=== PATIENT | male | born 1955 | race Caucasian/White ===

== ENCOUNTER 2016-11-11 11:40 | Inpatient (IN) ==
--- NOTE | 2016-11-11 12:07 | Emergency Department Note ---
Disposition Clinical Impression: Enthesopathy of elbow region, Cervical disc disease, Cervical radiculopathy, Hypertension, Hyperlipidemia, Chest pain, CAD (coronary artery disease), BEATTY ( dyspnea on exertion), Obesity Disposition: Admitted As Inpatient General Adult HPI - General Stated complaint: L arm pain and numbness x 2 months Time Seen by Provider: 11/11/16 12:06 Source: patient, family - History of Present Illness HPI Narrative: 61-year-old male reports to the emergency department complaining of left arm numbness and pain. The patient has had symptoms for the last few months, he visited his primary care physician who prescribed him a nonsteroidal as well as tramadol. This has not been helpful. The patient also saw a chiropractor. The patient describes pain from the left trapezius area down through the left arm with numbness. He has no previous history of neck problems, cervical disc disease, malignancy, or neck surgery. There has been no trauma. No neck stiffness rash or fever. No kenny neck pain. The patient denies any coldness or blueness of the extremities. No numbness or weakness in the arms or legs otherwise. No headache. No trouble walking talking hearing seeing or speaking. The patient has no personal history of aneurysm, he does not take blood thinners. There is no history of fever cough or shortness of breath unless he exerts himself. The patient does describe some exertional chest discomfort as well as shortness of breath. His reports he is generally healthy and active and and this symptomatology is new and apparently persistent and getting worse. There is no history of rash. No history of abdominal pain vomiting diarrhea or back pain. No urinary symptoms reported or noted. The patient has no personal history of vascular disease, previous CVA, coronary disease diabetes , but he does have a history of hypertension, hypercholesterolemia and a strong family history of coronary artery disease. Patient reports he has not usually dyspnea or have chest pain on and exertion but has developed this recently. No history of Dylan's syndrome. No coughing up blood, passing out, leg swelling or pain, or personal history of DVT PE or cancer. No spinal pain. Onset (ago): week(s) - Related Data Home Medications Medication Instructions Recorded Confirmed Amlodipine [Norvasc] 5 mg PO DAILY 11/11/16 11/11/16 Aspirin 325 mg PO DAILY 11/11/16 11/11/16 Atenolol [Atenolol] 100 mg PO DAILY 11/11/16 11/11/16 Etodolac [Etodolac] 500 mg PO BID 11/11/16 11/11/16 Ferrous Sulfate 325 mg PO DAILY 11/11/16 11/11/16 Losartan/Hydrochlorothiazide 1 tab PO DAILY 11/11/16 11/11/16 [Losartan-Hctz 100-25 mg Tab] Multivitamin [Multi-Day Vitamins] 1 each PO DAILY 11/11/16 11/11/16 Tramadol HCl [Tramadol HCl] 50 mg PO Q6H PRN 11/11/16 11/11/16 Allergies Allergy/AdvReac Type Severity Reaction Status Date / Time No Known Allergies Allergy Verified 11/11/16 12:17 All systems ED: reviewed and negative except as stated. Past Medical History - Past Medical History Medical history: Reports: hyperlipidemia Physical Exam - General Limitations: no limitations General appearance: alert, in no apparent distress - Head Head exam: atraumatic, normocephalic, normal inspection - Eye Eye exam: Present: normal appearance, PERRL, EOMI. Absent: scleral icterus, conjunctival injection - ENT ENT exam: normal exam, normal oropharynx, mucous membranes moist, TM's normal bilaterally, normal external ear exam - Neck Neck exam: Present: normal inspection, full ROM, trachea midline. Absent: tenderness, meningismus - Chest Chest inspection: Present: symmetric chest wall rise. Absent: tenderness - Respiratory Respiratory exam: Present: normal lung sounds bilaterally, respiratory distress - Cardiovascular Cardiovascular exam: Present: regular rate, normal rhythm, normal heart sounds - Abdominal Exam Abdominal exam: Present: soft, Non-Tender. Absent: tenderness, distention, guarding, rebound, rigidity, pulsatile mass - Extremities Exam Extremities exam: Present: normal inspection, full ROM, normal capillary refill. Absent: tenderness, pedal edema, joint swelling, calf tenderness - Expanded Upper Extremity Exam Shoulder exam: Present: normal inspection, full ROM. Absent: tenderness, swelling, abrasion, laceration, ecchymosis, deformity, crepitus, dislocation, erythema Arm exam: Present: normal inspection, full ROM. Absent: tenderness, swelling Elbow exam: Present: normal inspection, full ROM. Absent: tenderness, swelling Forearm/Wrist exam: Present: normal inspection, full ROM. Absent: tenderness Hand exam: Present: normal inspection, full ROM. Absent: tenderness, swelling - Expanded Lower Extremity Exam Hip/Pelvis exam: Present: full ROM. Absent: tenderness Upper leg exam: Present: full ROM. Absent: tenderness Knee exam: Present: full ROM. Absent: tenderness Lower leg exam: Present: full ROM. Absent: tenderness, Homans' sign Ankle exam: Present: full ROM. Absent: tenderness Neurovascular/Tendon exam: Present: normal capillary refill. Absent: pulse deficit, motor deficit, sensory deficit, tendon deficit - Back Exam Back exam: Present: normal inspection, full ROM. Absent: tenderness, CVA tenderness (R), CVA tenderness (L), vertebral tenderness - Neurological Exam Neurological exam: Present: alert, oriented X3, CN II-XII intact. Absent: motor sensory deficit - Psychiatric Psychiatric exam: Present: normal affect - Skin Skin exam: Present: warm, dry, intact, normal color. Absent: rash, cyanosis, diaphoresis, erythema, pallor, mottled Course Vital Signs Temperature 97.3 F L 11/11/16 12:06 Pulse Rate 55 11/11/16 12:06 Respiratory Rate 17 11/11/16 12:06 Blood Pressure 109/89 11/11/16 12:06 O2 Sat by Pulse Oximetry 98 11/11/16 12:06 Temperature 97.3 F L 11/11/16 12:06 Pulse Rate 46 11/11/16 16:14 Respiratory Rate 16 11/11/16 16:14 Blood Pressure 162/82 11/11/16 16:14 O2 Sat by Pulse Oximetry 94 L 11/11/16 16:14 Oxygen Delivery Oxygen Delivery Room Air Medical Decision Making - [facility] Narrative Medical decision making narrative: The patient is 61 years old, has a history of hypertension and hyperlipidemia as well as a strong family history of coronary artery disease. The patient's CT scans reveal significant C6 region cervical pathology which are likely responsible for his left upper extremity radiculopathy. I reviewed the case with the patient and his . They are concerned about the patient's progressive chest pain and shortness of breath. He gets dyspneic and has chest pain on exertion. He has never had a cardiac catheterization. His CT studies reveal some coronary artery disease. They do not feel comfortable taking the patient home. The patient was given pain control measures in the ED as well as aspirin. Based on his heart score, and apparent new onset dyspnea on exertion with chest pain and progressive symptomatology, I thought it would be appropriate to consult the hospitalist for admission. The patient is currently stable. - Lab Data Lab results reviewed: Yes I reviewed the patient's lab results. Result diagrams: 11/11/16 12:30 11/11/16 12:30 Lab Results 11/11/16 11/11/16 11/11/16 Range/Units 12:30 12:30 12:30 WBC 8.5 (4.3-11.1) K/mcL RBC 5.80 H (4.19-5.50) M/mcL Hgb 17.2 H (12.9-16.9) g/dL Hct 51.0 H (37.5-50.1) % MCV 87.9 (83.0-100.0) fL MCH 29.7 (28.0-33.3) pg MCHC 33.7 (31.6-35.5) g/dL RDW 11.9 (11.5-14.5) % Plt Count 230 (140-400) K/mcL MPV 9.0 L (9.4-12.4) fL Immature Gran % 0.4 (0-4) % Seg Neutrophils % 74.5 % Lymphocytes % 14.9 % Monocytes % 4.5 % Eosinophils % 4.9 % Basophils % 0.8 % Neutrophils # 6.4 (1.6-8.9) K/mcL Lymphocytes # 1.3 (0.6-4.6) K/mcL Monocytes # 0.4 (0.0-1.3) K/mcL Eosinophils # 0.4 (0.0-0.6) K/mcL Basophils # 0.1 (0.0-0.2) K/mcL PT 12.4 H (9.4-12.1) Seconds INR 1.1 APTT 30.5 (26.0-36.0) Seconds Sodium 140 (136-145) mEq/L Potassium 3.7 (3.5-4.5) mEq/L Chloride 104 (98-109) mEq/L Carbon Dioxide 30 H (19-29) mEq/L BUN 14 (8-26) mg/dL Creatinine 0.82 (0.72-1.25) mg/dL Est GFR ( Amer) > 60 (> 60) Est GFR (Non-Af Amer) > 60 (> 60) BUN/Creatinine Ratio 17 (6-26) Glucose 125 H (70-99) mg/dL Calculated Osmolality 292 (280-300) Calcium 9.8 (8.6-10.8) mg/dL Total Bilirubin 0.4 (0.2-1.2) mg/dL Direct Bilirubin 0.2 (0.0-0.5) mg/dL Indirect Bilirubin 0.2 (0.0-1.2) mg/dL AST 17 (5-34) Units/L ALT 20 (0-55) Units/L Alkaline Phosphatase 64 (38-126) Units/L Creatine Kinase 43 (30-200) Units/L Troponin I (0-0.03) ng/mL C-Reactive Protein 5 H (Less than 5) mg/L Serum Total Protein 7.7 (6.0-8.3) g/dL Albumin 3.5 (3.5-5.0) g/dL Globulin 4.2 H (2.4-3.5) g/dL Albumin/Globulin Ratio 0.8 L (1.1-2.2) 11/11/ Range/Units 12:30 WBC (4.3-11.1) K/mcL RBC (4.19-5.50) M/mcL Hgb (12.9-16.9) g/dL Hct (37.5-50.1) % MCV (83.0-100.0) fL MCH (28.0-33.3) pg MCHC (31.6-35.5) g/dL RDW (11.5-14.5) % Plt Count (140-400) K/mcL MPV (9.4-12.4) fL Immature Gran % (0-4) % Seg Neutrophils % % Lymphocytes % % Monocytes % % Eosinophils % % Basophils % % Neutrophils # (1.6-8.9) K/mcL Lymphocytes # (0.6-4.6) K/mcL Monocytes # (0.0-1.3) K/mcL Eosinophils # (0.0-0.6) K/mcL Basophils # (0.0-0.2) K/mcL PT (9.4-12.1) Seconds INR APTT (26.0-36.0) Seconds Sodium (136-145) mEq/L Potassium (3.5-4.5) mEq/L Chloride (98-109) mEq/L Carbon Dioxide (19-29) mEq/L BUN (8-26) mg/dL Creatinine (0.72-1.25) mg/dL Est GFR ( Amer) (> 60) Est GFR (Non-Af Amer) (> 60) BUN/Creatinine Ratio (6-26) Glucose (70-99) mg/dL Calculated Osmolality (280-300) Calcium (8.6-10.8) mg/dL Total Bilirubin (0.2-1.2) mg/dL Direct Bilirubin (0.0-0.5) mg/dL Indirect Bilirubin (0.0-1.2) mg/dL AST (5-34) Units/L ALT (0-55) Units/L Alkaline Phosphatase (38-126) Units/L Creatine Kinase (30-200) Units/L Troponin I 0.00 (0-0.03) ng/mL C-Reactive Protein (Less than 5) mg/L Serum Total Protein (6.0-8.3) g/dL Albumin (3.5-5.0) g/dL Globulin (2.4-3.5) g/dL Albumin/Globulin Ratio (1.1-2.2) - Radiology Data Radiology results reviewed: Yes I reviewed the patient's radiology results.
[2016-11-11 12:58] LABS: Basophils # 0.1 K/mcL (0.0-0.2); Basophils % 0.8 %; Eosinophils # 0.4 K/mcL (0.0-0.6); Eosinophils % 4.9 %; Hemoglobin 17.2 g/dL (12.9-16.9); Immature Granulocytes % 0.4 % (0-4); Lymphocytes # 1.3 K/mcL (0.6-4.6); Lymphocytes % 14.9 %; Mean Corpuscular HGB Conc 33.7 g/dL (31.6-35.5); Mean Corpuscular Hemoglobin 29.7 pg (28.0-33.3); Mean Corpuscular Volume 87.9 fL (83.0-100.0); Monocytes # 0.4 K/mcL (0.0-1.3); Monocytes % 4.5 %; Neutrophils # 6.4 K/mcL (1.6-8.9); Platelet Count 230 K/mcL (140-400); Red Cell Distribution Width 11.9 % (11.5-14.5); Segmented Neutrophils % 74.5 %
[2016-11-11 13:05] LABS: INR 1.1; Prothrombin Time 12.4 Seconds (9.4-12.1)
[2016-11-11 13:07] LABS: Activated Partial Thrombo Time 30.5 Seconds (26.0-36.0)
[2016-11-11 13:12] LABS: Alanine Aminotransferase 20 Units/L (0-55); Albumin 3.5 g/dL (3.5-5.0); Albumin/Globulin Ratio 0.8 (1.1-2.2); Alkaline Phosphatase 64 Units/L (38-126); Aspartate Amino Transferase 17 Units/L (5-34); BUN/Creatinine Ratio 17 (6-26); Bilirubin,Direct 0.2 mg/dL (0.0-0.5); Bilirubin,Indirect 0.2 mg/dL (0.0-1.2); Bilirubin,Total 0.4 mg/dL (0.2-1.2); Blood Urea Nitrogen 14 mg/dL (8-26); Calcium 9.8 mg/dL (8.6-10.8); Carbon Dioxide 30 mEq/L (19-29); Chloride 104 mEq/L (98-109); Creatine Kinase 43 Units/L (30-200); Globulin 4.2 g/dL (2.4-3.5); Glucose 125 mg/dL (70-99); Osmolality,Calculated 292 (280-300); Potassium 3.7 mEq/L (3.5-4.5); Sodium 140 mEq/L (136-145); Total Protein 7.7 g/dL (6.0-8.3); eGFR For African Americans > 60 (> 60); eGFR For Non-African Americans > 60 (> 60)
[2016-11-11 14:02] LABS: C-Reactive Protein 5 mg/L (Less than 5)
[2016-11-11] MEDS ORDERED: Ondansetron 4 MG/2 ML VIAL IVP ONE ×2 (14:21→15:52)
[2016-11-11] MEDS ORDERED: *HR* Morphine 2 MG/ML SYRINGE IVP ONE (14:21)
[2016-11-11] MEDS ORDERED: Aspirin 325 MG TABLET PO ONE (15:51)
[2016-11-11] MEDS ORDERED: *HR* HYDROmorphone (PF) 1 MG/ML SYRINGE IVP ONE (15:52)
[2016-11-11] MEDS ORDERED: methylPREDNISolone 125 MG/2 ML VIAL IVP ONE (16:32)
[2016-11-11] MEDS ORDERED: Famotidine 20 MG/2 ML VIAL IVP ONE (16:48)
[2016-11-11] MEDS ORDERED: Naloxone 0.4 MG/ML INJ IVP PRN (16:48)
[2016-11-11] MEDS ORDERED: Ondansetron 4 MG/2 ML VIAL IVP PRN (16:48)
--- NOTE | 2016-11-11 17:33 | Internal Med History&Physical ---
Date of Encounter: 11/11/16 Time of Encounter: 17:00 Assessment and Plan (1) Chest pain Current visit: Yes Status: Acute Left sided chest pain Asso. with SOB, palpitations and lightheadedness. Not reproducible. CTAB. EKG with 1st degree AV block and sinus bradycardia Trop -ve CTA does not reveal PE CT neck reveals radiculopathy Place under observation Strong family history of CAD Had stress test last year in 07/2015 that was negative and ECHO that was normal. Cardiology consult. Cycle troponins. NPO past midnight in case cardiology recommends stress testing. Telemetry. Qualifiers: Chest pain type: precordial chest pain Qualified Code(s): R07.2 - Precordial pain (2) Hypertension Current visit: Yes Status: Chronic Continue home meds Monitor BP and adjust accordingly Qualifiers: Hypertension type: essential hypertension Qualified Code(s): I10 - Essential (primary) hypertension (3) Cervical stenosis of spinal canal Current visit: Yes Status: Chronic Needs out patient MRI on a non-emergent basis for further evaluation May benefit from neurology follow up and may require neurosurgical consultation (4) WENDY (obstructive sleep apnea) Current visit: Yes Status: Suspected History of snoring and jerking movements in sleep punching his Will need out patient sleep study. Will check ABG to evaluate for hypercapnia from COPD due to elevated bicarbonate level Check ambulatory oxygen levels to evaluate if he needs oxygen with activity (5) Obesity (BMI 30-39.9) Current visit: No Status: Chronic (6) COPD (chronic obstructive pulmonary disease) Current visit: Yes Status: Suspected Pt. has high hemoglobin and appears flushed Has about 50 pack year smoking history Will start duonebs PRN and assess response Qualifiers: COPD type: unspecified COPD Qualified Code(s): J44.9 - Chronic obstructive pulmonary disease, unspecified Internal Medicine - H&P: HPI Chief complaint: Chest pain Admitted From: Emergency Dept Plans for Post Hospital Care: Home History of present illness: Mr. Saavedra is a 61 year old male with a history of hypertension who presents to the emergency room due to chest pain. Patient states that he has been having chest pain and left arm pain over the past 2 months. This has been gradually getting worse. The pain is present constantly without any activating or relieving factors. It is the pain as 10/10 with radiation to his left arm all the way to his second and third fingers. He reports that his second and third fingers are numb. He denies any associated nausea, vomiting or diaphoresis. He reports associated lightheadedness and palpitations that are aggravated with activity. He reports shortness of breath. He states that he gets short of breath with moderate to severe activity. His palpitations have been going on for the past 2 years. He denies any orthopnea or paroxysmal nocturnal dyspnea. He denies any cough or wheezing. He reports that he has had diarrhea over the past 5-6 years. He reports 8-10 bowel movements per day which are loose and watery. He reports occasional blood in the stools that happens about once a month. Over the past one week, he has had black colored stools that is sticky. About 3 weeks ago, he was started on etodolac by his primary care physician due to pain in his left arm which she has been taking twice a day. He also reports reduced appetite and reduced weight although he is not able to tell me how much weight he has lost. He denies any fever or chills. He does report that he has had a cold about 2 weeks ago which is currently resolved. Past Med Surg Social Fam HX - Past Medical History Attestation: Yes The following information was validated with the patient. Source: patient Medical history: GERD, hyperlipidemia, hypertension Psychiatric history: no psych history - Past Surgical History Surgical History: herniorrhaphy (Umbilical hernia), other (Stomach raised for GERD; Hemorrhoids) - Social History Smoking Status: Former smoker Packs per day: 2-3 PPD x 20 yrs Alcohol use: heavy (5-6 beers daily) Drug use: none Current living situation: Home, With Family Activity Level: Independent ambulation - Family History Brother Hx Family Cardiac Disorders: Yes (CAD @ 51) Sister Hx Family Cardiac Disorders: Yes (CAD @ 60) Hx Family Neurologic Disorders: Yes (ALS) Mother Hx Family Cardiac Disorders: Yes (CAD) Internal Medicine - H&P: Meds Amlodipine [Norvasc] 5 mg PO DAILY 11/11/16 [History] Aspirin 325 mg PO DAILY 11/11/16 [History] Atenolol [Atenolol] 100 mg PO DAILY 11/11/16 [History] Etodolac [Etodolac] 500 mg PO BID 11/11/16 [History] Ferrous Sulfate 325 mg PO DAILY 11/11/16 [History] Losartan/Hydrochlorothiazide [Losartan-Hctz 100-25 mg Tab] 1 tab PO DAILY [History] Multivitamin [Multi-Day Vitamins] 1 each PO DAILY 11/11/16 [History] Tramadol HCl [Tramadol HCl] 50 mg PO Q6H PRN 11/11/16 [History] Allergies No Known Allergies Allergy (Verified 11/11/16 12:17) All Systems PM: A 10-system review of systems was performed and is negative for pertinent findings except as documented above in the HPI. Review of systems: 10 systems have been reviewed and are negative except as mentioned in the history of present illness - Constitutional Vitals: Temp Pulse Resp BP Pulse Ox 97.3 F L 46 16 134/99 96 11/11/16 12:06 11/11/16 17:10 11/11/16 17:10 11/11/16 17:10 11/11/16 17:10 Exam: Gen.: Lying in bed. No acute distress. Eyes: Pupils equal, round and reactive to light. Extraocular muscles intact. ENT: Moist mucous membranes. No oropharyngeal erythema or discharge. MP III. Tonsils seen. Chest: Clear to auscultation bilaterally. No adventitious sounds present. CVS: First and second heart sounds present. No murmurs, rubs or gallops. Bradycardia present. Abdomen: Soft, nontender, obese. Bowel sounds present. Skin: No decubitus ulcers appreciated. JET HANDLER: No focal neuro deficits present. Psychiatric: Alert, awake and oriented to time, place and person. Lymphatic system: No lymphadenopathy appreciated Internal Med - H&P Results - Labs CBC & Chem 7: 11/11/16 12:30 11/11/16 12:30 - EKG Data -: EKG Interpreted by Myself EKG shows normal: sinus rhythm, QRS complexes (1st degree AV block; WI 211), ST- T waves (No ST-T changes) Rate: bradycardia - Diagnostic Studies CT scan - chest Status: image reviewed by me (No PE seen; No infiltrates; Enlarged Heart) Other Images Additional comments: CT cervical spine reveals moderate to severe spinal canal stenosis
[2016-11-11] MEDS ORDERED: Ipratropium/Albuterol Neb 3 ML IH PRN (17:49)
[2016-11-11 20:26] LABS: ABG Base Excess 4.6 mEq/L (-2.0 to 3.0); ABG HCO3 31.8 mEQ/L (21-27); ABG Oxygen Saturation 91 % (95-98); ABG PCO2 55 mmHg (35-45); ABG PH 7.37 pH Units (7.32-7.45); ABG PO2 64 mmHg (85-104); ABG TCO2 33.5 mEq/L (20-26); Blood Gas FiO2 21 %
[2016-11-12] MEDS: traMADol 50 MG TABLET PO PRN ×3 (00:14→16:57)
[2016-11-12] MEDS ORDERED: Melatonin 3 MG TABLET PO ONE (00:15)
[2016-11-12] MEDS: Acetaminophen 325 MG TABLET PO PRN (03:51)
[2016-11-12 07:19] LABS: Basophils % 0.1 %; Hematocrit 48.8 % (37.5-50.1); Hemoglobin 16.8 g/dL (12.9-16.9); Immature Granulocytes % 0.3 % (0-4); Lymphocytes # 1.1 K/mcL (0.6-4.6); Lymphocytes % 7.8 %; Mean Corpuscular HGB Conc 34.4 g/dL (31.6-35.5); Mean Corpuscular Hemoglobin 30.3 pg (28.0-33.3); Mean Corpuscular Volume 88.1 fL (83.0-100.0); Mean Platelet Volume 9.2 fL (9.4-12.4); Monocytes # 0.1 K/mcL (0.0-1.3); Monocytes % 0.7 %; Platelet Count 223 K/mcL (140-400); Red Blood Count 5.54 M/mcL (4.19-5.50); Red Cell Distribution Width 11.8 % (11.5-14.5); Segmented Neutrophils % 91.1 %
[2016-11-12 07:37] LABS: BUN/Creatinine Ratio 20 (6-26); Blood Urea Nitrogen 15 mg/dL (8-26); Calcium 9.6 mg/dL (8.6-10.8); Carbon Dioxide 26 mEq/L (19-29); Chloride 101 mEq/L (98-109); Glucose 157 mg/dL (70-99); Osmolality,Calculated 286 (280-300); Sodium 136 mEq/L (136-145); eGFR For African Americans > 60 (> 60); eGFR For Non-African Americans > 60 (> 60)
[2016-11-12 07:47] LABS: Hemoglobin A1C 5.5 %
--- NOTE | 2016-11-12 09:31 | Cardiology Consult Note ---
Date of Encounter: 11/12/16 Time of Encounter: 09:26 Assessment and Plan (1) Chest pain Current Visit: Yes Status: Acute Very atypical for angina, negative enzymes and EKG. Previous stress test negative. No further inpt. work up needed. Can follow up as outpt. Qualifiers: Chest pain type: precordial chest pain Qualified Code(s): R07.2 - Precordial pain Discussion w patient/family: The assessment and plan as outlined above was discussed with the patient and/or family members who expressed understanding and agreement. All questions were answered. Thank you for involving us in the care of your patient. Please call with any questions. History of Present Illness Consult date: 11/12/16 Requesting physician: Rick James Consult reason: Chest pain History of present illness: Mr. Saavedra is a 61 year old male who presented to the hospital due to shoulder pain. This has been constant for several weeks and is consistent with musculoskeletal injury. During the work up he also described left sided chest pain. This has no aggravating or relieving factors, is not associated with physical activity and lasts just 2-3 minutes at a time. He has had a previous stress test (2014) which was normal. Past Med Surg Social Fam HX - Past Medical History Medical history: GERD, hyperlipidemia, hypertension Psychiatric history: no psych history - Past Surgical History Surgical History: herniorrhaphy, other - Social History Smoking Status: Former smoker Packs per day: 2-3 PPD x 20 yrs Alcohol use: heavy Drug use: none - Family History Brother Living Status: Age at : 50 Cause of : MS Hx Family Cardiac Disorders: Yes (CAD @ 51) Sister Living Status: Age at : 60 Cause of : MS Hx Family Cardiac Disorders: Yes (CAD @ 60) Hx Family Neurologic Disorders: Yes (ALS) Mother Living Status: Still Living Hx Family Cardiac Disorders: Yes (CAD) Medications and Allergies Amlodipine [Norvasc] 5 mg PO DAILY 11/11/16 [History] Aspirin 325 mg PO DAILY 11/11/16 [History] Atenolol [Atenolol] 100 mg PO DAILY 11/11/16 [History] Etodolac [Etodolac] 500 mg PO BID 11/11/16 [History] Ferrous Sulfate 325 mg PO DAILY 11/11/16 [History] Losartan/Hydrochlorothiazide [Losartan-Hctz 100-25 mg Tab] 1 tab PO DAILY [History] Multivitamin [Multi-Day Vitamins] 1 each PO DAILY 11/11/16 [History] Tramadol HCl [Tramadol HCl] 50 mg PO Q6H PRN 11/11/16 [History] Allergies No Known Allergies Allergy (Verified 11/11/16 12:17) All Systems Review: A 10-system review of systems was performed and is negative for pertinent findings except as documented above in the HPI. Physical Examination Vital Signs, Last 4 Hours Temp Pulse Resp BP Pulse Ox 11/12/16 07:30 97 11/12/16 06:56 97.7 F 93 16 141/95 96 General: Conversant, No Apparent Distress HEENT: Atraumatic, Normocephaly, Mucus Membranes Moist Neck: No JVD, Normal carotid pulses Cardiac: Reg Rate and Rhythm, Normal S1 and S2, No Murmur Lungs: Normal Breath Sounds, No Wheeze, Rales, Rhonchi Neuro: Alert and responsive, No focal deficits noted Abdomen: Soft, Non-Tender Skin: No rashes noted on visualized skin Musculoskeletal: No Chest Wall Tenderness Extremities: No Clubbing, No Cyanosis, No Edema, Normal Pulses Results 11/12/16 06:14 11/12/16 06:14 Lab Results 11/11/16 11/11/16 11/12/16 18:22 20:54 06:14 WBC 14.3 H D Hgb 16.8 Hct 48.8 Plt Count 223 Sodium Potassium Chloride Carbon Dioxide BUN Creatinine Glucose Calcium Troponin I 0.01 0.00 11/12/16 06:14 WBC Hgb Hct Plt Count Sodium 136 Potassium 4.0 Chloride 101 Carbon Dioxide 26 BUN 15 Creatinine 0.76 Glucose 157 H Calcium 9.6 Troponin I - EKG Interpretation EKG results cardiology: normal ECG Consult Discharge Plan - Plan Referrals: Satish Nicole DO [Primary Care Provider] -
[2016-11-12] MEDS: Tiotropium 18 MCG inhalation IH SCH ×2 (11:04→14:03)
--- NOTE | 2016-11-12 11:08 | ECHO - Doppler Report ---
Echocardiogram Name: Sedrick Saavedra Date of Study: 11/12/2016 Date: 1955 Ht: 70.0 in Medical Record#: [id number] Age: 61 Wt: 236.0 lb Gender: Male BSA: 2.24 Order #: [id number] Location: [facility] Room #: [id number] Reading Physician: Maciej Jimenez MD, [facility] Boat Engine Mechanic: Carlito Castaneda Ordering Physician: Rick James MD Primary Physician: Satish Nicole DO Indications: Chest pain, Shortness of breath Impressions: Normal left ventricular size and systolic function, LVEF 65% Mild concentric left ventricular hypertrophy. Mild left ventricular diastolic dysfunction. Normal right ventricular size and function. Mildly dilated left atrium. No significant valvular dysfunction. No evidence of pulmonary hypertension. Left Ventricular Wall Motion: Rest Echo Findings All wall segments showed normal motion. Findings: Study Quality * Technically adequate exam. ECG Findings * Normal sinus rhythm. Left Ventricle * Normal left ventricular size and systolic function, LVEF 65% * Mild concentric left ventricular hypertrophy. * Mild left ventricular diastolic dysfunction. Right Ventricle * Normal right ventricular size and function. Left Atrium * Mildly dilated left atrium. Right Atrium * Normal right atrial size. Aorta * Normally sized aortic root. Pericardium * There is no pericardial effusion present. IVC * Normal IVC dimensions and inspiratory collapse. Aortic Valve * Trileaflet aortic valve. * No aortic stenosis. * No aortic regurgitation. Mitral Valve * Normal mitral valve structure. * No mitral stenosis. * Trace mitral regurgitation. Tricuspid Valve * Normal tricuspid valve structure. * No tricuspid stenosis. * Trace tricuspid regurgitation. * No evidence of pulmonary hypertension. Pulmonic Valve * Pulmonic valve not well visualized. * No pulmonic stenosis. * No pulmonic regurgitation. History Hypertension Family History of CAD 07/17/15 a Previous Echo was performed. Measurements: BP: 141/ 95 2D Normal Values RVIDd: 3.33 cm IVSd: 1.27 cm 0.6 - 1.0 cm LVIDd: 5.78 cm 3.7 - 5.6 cm LVPWd: 1.20 cm 0.6 - 1.1 cm LVIDs: 4.00 cm 1.5 - 3.6 cm AO: 3.40 cm < 4.0 cm %FS: 30.80 cm >25 % LA volume: 83 Mitral Valve Peak E:.59 m/sec Peak A:.84 m/sec E/A Ratio:0.7 Peak E' Lat Que:6.53 cm/s Peak E' Med Que:5.44 cm/s E/E' Lat Ratio:9 E/E' Med Ratio:10.8 Tricuspid Valve TV Regurg Peak Grad: 26.00mmHg TV Regurg Peak Que: 2.55m/sec Updated by Maciej Jimenez MD, [facility] on 11/12/2016 11:00:01 AM electronically signed on 11/12/2016 11:04:02 AM with status of Final Wall Motion Clark: 1=Normal, 2=Hypokinesis, 3=Akinesis, 4=Dyskinesis, 5=Aneurysmal, 6=Hyperkinetic, X=Not Visualized (Blank)=Missing
[2016-11-12] MEDS: Folic Acid 1 MG TABLET PO SCH (12:27)
[2016-11-12] MEDS: amLODIPine 5 MG TABLET PO SCH (12:28)
[2016-11-12] MEDS: Thiamine (B-1) 100 MG TABLET PO SCH (12:28)
[2016-11-12] MEDS: *HR* HYDROcodone/Acet 5/325 mg TABLET PO PRN ×2 (12:28→19:34)
[2016-11-12] MEDS: Losartan/HCTZ 50-12.5 TABLET PO SCH (12:28)
--- NOTE | 2016-11-12 12:35 | Discharge Summary ---
Date of Encounter: 11/12/16 Time of Encounter: 12:00 - Discharge Diagnosis (1) Chest pain Priority: Primary Status: Resolved Qualifiers: Chest pain type: other chest pain Qualified Code(s): R07.89 - Other chest pain; R07.8 - Other chest pain (2) COPD (chronic obstructive pulmonary disease) Priority: Secondary Status: Chronic Qualifiers: COPD type: unspecified COPD Qualified Code(s): J44.9 - Chronic obstructive pulmonary disease, unspecified (3) Hypertension Priority: Secondary Status: Chronic Qualifiers: Hypertension type: essential hypertension Qualified Code(s): I10 - Essential (primary) hypertension (4) Cervical stenosis of spinal canal Priority: Secondary Status: Chronic (5) WENDY (obstructive sleep apnea) Priority: Secondary Status: Suspected (6) Obesity (BMI 30-39.9) Priority: Secondary Status: Chronic (7) Respiratory failure Priority: Secondary Status: Chronic Qualifiers: Chronicity: chronic Respiratory failure complication: hypoxia and hypercapnia Qualified Code(s): J96.11 - Chronic respiratory failure with hypoxia; J96.12 - Chronic respiratory failure with hypercapnia - Discharge Medications Prescriptions: Albuterol Sulfate [Albuterol Inhaler] 2 puff IH Q6HR PRN #1 inh PRN Reason: Shortness Of Breath/Wheezing HYDROcodone/Acet 5/325 mg [[place] 5-325 mg] 1 tab PO Q6HR PRN #20 tablet PRN Reason: Severe Pain Atenolol [Tenormin] 50 mg PO DAILY #30 tablet Omeprazole [PriLOSEC] 20 mg PO DAILY@0630 #60 Tiotropium [Spiriva] 18 mcg IH DAILYR #30 inh Home Medications: Amlodipine [Norvasc] 5 mg PO DAILY 11/11/16 [History] Aspirin 325 mg PO DAILY 11/11/16 [History] Ferrous Sulfate 325 mg PO DAILY 11/11/16 [History] Losartan/Hydrochlorothiazide [Losartan-Hctz 100-25 mg Tab] 1 tab PO DAILY [History] Multivitamin [Multi-Day Vitamins] 1 each PO DAILY 11/11/16 [History] Tramadol HCl 50 mg PO Q6H PRN 11/11/16 [History] Albuterol Sulfate [Albuterol Inhaler] 2 puff IH Q6HR PRN #1 inh 11/12/16 [Rx] Atenolol [Tenormin] 50 mg PO DAILY #30 tablet 11/12/16 [Rx] HYDROcodone/Acet 5/325 mg [[place] 5-325 mg] 1 tab PO Q6HR PRN #20 tablet [Rx] Omeprazole [PriLOSEC] 20 mg PO DAILY@0630 #60 capsule. 11/12/16 [Rx] Tiotropium [Spiriva] 18 mcg IH DAILYR #30 inh 11/12/16 [Rx] Allergies/Adverse Reactions: Allergies No Known Allergies Allergy (Verified 11/11/16 12:17) Procedures/tests Complete & Pending: Procedures Performed prior 72 hours Category Date Time Status EV echocardiogram Routine Y 11/12/16 17:48 Completed - Notes to Outpatient Provider 1. Requires neurology and/or neurosurgery follow-up for cervical spinal stenosis causing left arm pain and numbness in his left second and third digits. 2. Consider outpatient sleep study for evaluation of sleep apnea. 3. Consider outpatient PFTs for further evaluating his COPD. 4. Patient being discharged with a prescription for albuterol and Spiriva. Evaluate response. Date of admission: 11/11/16 16:33 Primary care physician: Satish Nicole Consults: 11/11/16 16:49 Consult to Cardiology [CONS] Routine Comment: Consulting Provider: Tanner Keating Reason for Consult: Chest pain; Moderate CAD on CT chest Call Completed: No Discharging clinician: Rick James Anticipated date of discharge: 11/12/16 - Patient Status Disposition: Home, Self-Care Condition: Good Functional capacity at discharge: independent ambulation Overall status at discharge: patient is progressing back to baseline - Discharge Instructions Follow Up With: Satish Nicole DO [Primary Care Provider] - Yong Brown MD [Partnered Physician] - (1-2 weeks of discharge) - Diet and Activity Activity: increase activity as tolerated, resume usual activities as tolerated Diet: advance to your usual diet Hospital course: Mr. Saavedra is a 61 year old male who was admitted due to chest pain radiating to the left arm and shortness of breath. Patient was admitted for chest pain observation. He had a stress test one year ago which was normal. Cardiology was consulted to evaluate the patient. His chest pain was felt to be atypical and due to his normal stress test last year, no further cardiac workup has been indicated. Cardiology has recommended that the patient can follow-up as an outpatient. Regarding his shortness of breath, the patient has a history of 60 pack years smoking but he has quit 24 years ago. He reported shortness of breath with exertion. An ABG was obtained which revealed a PCO2 level of 55 and the O2 of 64 on room air. The patient does not require oxygen supplementation at rest. He will be evaluated for oxygen supplementation with activity. If he qualifies , arrangements will be made for home oxygen with activity. His left arm pain has been felt to be due to cervical spinal stenosis. The patient had a CT scan of his cervical spine which revealed moderate to severe spinal canal stenosis at the level of C5-C6. He will need outpatient neurology and/or neurosurgical follow-up for evaluation and management of the same. He is being given a prescription for Robertson for pain control. The patient has a history of snoring during sleep and jerking movements during sleep during which he hits his . High suspicion for obstructive sleep apnea. Consider outpatient sleep study. - Time Spent with Patient Total time spent providing and/or coordinating discharge services: - Constitutional Vitals: Temp Pulse Resp BP Pulse Ox 97.7 F 93 16 141/95 97 11/12/16 06:56 11/12/16 06:56 11/12/16 06:56 11/12/16 06:56 11/12/16 07:30 Exam: Gen.: Lying in bed. No acute distress. Chest: Clear to auscultation bilaterally. No adventitious sounds present. CVS: First and second heart sounds present. No murmurs, rubs or gallops.
[2016-11-13] MEDS: traMADol 50 MG TABLET PO PRN ×5 (00:18→20:23)
[2016-11-13] MEDS: *HR* HYDROcodone/Acet 5/325 mg TABLET PO PRN ×4 (03:05→23:33)
[2016-11-13] MEDS: Losartan/HCTZ 50-12.5 TABLET PO SCH (09:39)
[2016-11-13] MEDS: amLODIPine 5 MG TABLET PO SCH (09:39)
[2016-11-13] MEDS: Thiamine (B-1) 100 MG TABLET PO SCH (09:40)
[2016-11-13] MEDS: Folic Acid 1 MG TABLET PO SCH (09:40)
[2016-11-13] MEDS: Tiotropium 18 MCG inhalation IH SCH (10:25)
--- NOTE | 2016-11-13 16:11 | Internal Med Progress Note ---
Date of Encounter: 11/13/16 Time of Encounter: 12:30 - Assessment and plan (1) Cervical stenosis of spinal canal Current Visit: Yes Status: Chronic Assessment and plan: Needs MRI - anticipate will be done tomorrow and nerve compression appears to be cause of L arm symptoms. (2) Bradycardia Current Visit: Yes Status: Acute Assessment and plan: Most likely related to Atenolol though has been on this for a while according to . Med on hold for now. On telemetry. (3) Cervical radiculopathy Current Visit: Yes Status: Acute Assessment and plan: L arm parasthesias related to cervical spine disease. (4) WENDY (obstructive sleep apnea) Current Visit: Yes Status: Suspected Assessment and plan: Will do qualification for bipap tonight. (5) Hypertension Current Visit: Yes Status: Chronic Assessment and plan: Atenolol on hold. Follow BP. Qualifiers: Hypertension type: essential hypertension Qualified Code(s): I10 - Essential (primary) hypertension (6) Chest pain Current Visit: Yes Status: Resolved Assessment and plan: Resolved. Qualifiers: Chest pain type: other chest pain Qualified Code(s): R07.89 - Other chest pain; R07.8 - Other chest pain - Subjective Interval history: Mr. Saavedra is currently in observation for L arm pain and weight loss. He is moderate to high risk due to potential of neurologic decline. He is bradycardic today. Mr. Saavedra was not discharged due to being bradycardic last evening. He has been running heart rate from low 40s to 50s. No CP or SOB but still with discomfort in L arm. No abd pain. Reports 20lb weight loss in 2 weeks prior to admission. Has persistent diarrhea for the last 5 years or so. Last colonoscopy about 3-4 years ago. is at bedside and says he is more fatigued. Has also been feeling dizzy in the mornings on occasion when he gets up. No urinary symptoms. No cough now. - Constitutional Vitals: Temp Pulse Resp BP Pulse Ox 97.9 F 50 15 119/81 93 L 11/13/16 15:38 11/13/16 15:38 11/13/16 15:38 11/13/16 15:38 11/13/16 15:38 General appearance: Present: A&O X 3, pleasant, answers questions appropriately - Head Head exam: Present: normocephalic - Eye Eye exam: Present: EOMI, conjuntiva pink - ENT ENT exam: Present: mucous membranes moist - Respiratory Respiratory exam: Present: CTAB. Absent: rhonchi, wheezes - Cardiovascular Cardiovascular exam: Present: bradycardia. Absent: +S4, systolic murmur Additional comments: Regular rate. - GI/Abdominal GI/Abdominal exam: Present: normal bowel sounds, soft. Absent: mass, tenderness - Extremities Exam Extremities exam: Present: warm. Absent: pedal edema - Neurological Exam Neurological exam: Present: alert, oriented X3 - Psychiatric Psychiatric exam: Present: normal affect, normal mood - Skin Skin exam: Present: dry, warm. Absent: rash Internal Medicine: Result - Labs CBC & Chem 7: 11/12/16 06:14 11/12/16 06:14 - ABG Interpretation ABG results: ABG ABG pH 7.37 pH Units (7.32-7.45) 11/11/16 20:05 ABG pCO2 55 mmHg (35-45) H 11/11/16 20:05 ABG pO2 64 mmHg (85-104) L 11/11/16 20:05 ABG O2 Saturation 91 % (95-98) L 11/11/16 20:05 PT/INR, D-dimer PT 12.4 Seconds (9.4-12.1) H 11/11/16 12:30 Consult Discharge Plan - Plan Referrals: Yong Brown MD [Partnered Physician] - (1-2 weeks of discharge) Satish Nicole DO [Primary Care Provider] - Prescriptions: Albuterol Sulfate [Albuterol Inhaler] 2 puff IH Q6HR PRN #1 inh PRN Reason: Shortness Of Breath/Wheezing HYDROcodone/Acet 5/325 mg [[place] 5-325 mg] 1 tab PO Q6HR PRN #20 tablet PRN Reason: Severe Pain Atenolol [Tenormin] 50 mg PO DAILY #30 tablet Omeprazole [PriLOSEC] 20 mg PO DAILY@0630 #60 capsule. Tiotropium [Spiriva] 18 mcg IH DAILYR #30 inh
[2016-11-14] MEDS: traMADol 50 MG TABLET PO PRN ×3 (02:24→15:34)
[2016-11-14 05:50] LABS: Hematocrit 46.9 % (37.5-50.1); Hemoglobin 16.1 g/dL (12.9-16.9); Mean Corpuscular HGB Conc 34.3 g/dL (31.6-35.5); Mean Corpuscular Hemoglobin 30.4 pg (28.0-33.3); Mean Corpuscular Volume 88.7 fL (83.0-100.0); Mean Platelet Volume 9.2 fL (9.4-12.4); Platelet Count 199 K/mcL (140-400); Red Blood Count 5.29 M/mcL (4.19-5.50); Red Cell Distribution Width 11.9 % (11.5-14.5)
[2016-11-14 06:24] LABS: BUN/Creatinine Ratio 21 (6-26); Blood Urea Nitrogen 15 mg/dL (8-26); Calcium 9.3 mg/dL (8.6-10.8); Carbon Dioxide 29 mEq/L (19-29); Chloride 99 mEq/L (98-109); Glucose 109 mg/dL (70-99); Magnesium 1.8 mg/dL (1.6-2.6); Osmolality,Calculated 285 (280-300); Potassium 3.6 mEq/L (3.5-4.5); Sodium 137 mEq/L (136-145); eGFR For African Americans > 60 (> 60); eGFR For Non-African Americans > 60 (> 60)
[2016-11-14] MEDS: amLODIPine 5 MG TABLET PO SCH (07:13)
[2016-11-14] MEDS: Folic Acid 1 MG TABLET PO SCH (07:14)
[2016-11-14] MEDS: Losartan/HCTZ 50-12.5 TABLET PO SCH (07:14)
[2016-11-14] MEDS: *HR* HYDROcodone/Acet 5/325 mg TABLET PO PRN ×3 (07:14→16:52)
[2016-11-14] MEDS: Thiamine (B-1) 100 MG TABLET PO SCH (07:14)
--- NOTE | 2016-11-14 09:24 | Electrocardiograph Report ---
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
[2016-11-14] MEDS: Tiotropium 18 MCG inhalation IH SCH (10:07)
--- NOTE | 2016-11-14 14:59 | Discharge Summary ---
Date of Encounter: 11/14/16 Time of Encounter: 10:00 - Discharge Diagnosis (1) Chest pain Priority: Primary Status: Resolved Qualifiers: Chest pain type: other chest pain Qualified Code(s): R07.89 - Other chest pain; R07.8 - Other chest pain (2) COPD (chronic obstructive pulmonary disease) Priority: Secondary Status: Chronic Qualifiers: COPD type: unspecified COPD Qualified Code(s): J44.9 - Chronic obstructive pulmonary disease, unspecified (3) Cervical stenosis of spinal canal Priority: Secondary Status: Chronic (4) Hypertension Priority: Secondary Status: Chronic Qualifiers: Hypertension type: essential hypertension Qualified Code(s): I10 - Essential (primary) hypertension (5) WENDY (obstructive sleep apnea) Priority: Secondary Status: Suspected (6) Obesity (BMI 30-39.9) Priority: Secondary Status: Chronic (7) DVT prophylaxis Priority: Secondary Status: Acute (8) 1St degree AV block Priority: Secondary Status: Acute - Discharge Medications Prescriptions: Albuterol Sulfate [Albuterol Inhaler] 2 puff IH Q6HR PRN #1 inh PRN Reason: Shortness Of Breath/Wheezing HYDROcodone/Acet 5/325 mg [[place] 5-325 mg] 1 tab PO Q6HR PRN #20 tablet PRN Reason: Severe Pain Atenolol [Tenormin] 50 mg PO DAILY #30 tablet Omeprazole [PriLOSEC] 20 mg PO DAILY@0630 #60 capsule Tiotropium [Spiriva] 18 mcg IH DAILYR #30 inh Home Medications: Amlodipine [Norvasc] 5 mg PO DAILY 11/11/16 [History] Aspirin 325 mg PO DAILY 11/11/16 [History] Ferrous Sulfate 325 mg PO DAILY 11/11/16 [History] Losartan/Hydrochlorothiazide [Losartan-Hctz 100-25 mg Tab] 1 tab PO DAILY [History] Multivitamin [Multi-Day Vitamins] 1 each PO DAILY 11/11/16 [History] Tramadol HCl 50 mg PO Q6H PRN 11/11/16 [History] Albuterol Sulfate [Albuterol Inhaler] 2 puff IH Q6HR PRN #1 inh 11/12/16 [Rx] Atenolol [Tenormin] 50 mg PO DAILY #30 tablet 11/12/16 [Rx] HYDROcodone/Acet 5/325 mg [[place] 5-325 mg] 1 tab PO Q6HR PRN #20 tablet [Rx] Omeprazole [PriLOSEC] 20 mg PO DAILY@0630 #60 capsule. 11/12/16 [Rx] Tiotropium [Spiriva] 18 mcg IH DAILYR #30 inh 11/12/16 [Rx] Allergies/Adverse Reactions: Allergies No Known Allergies Allergy (Verified 11/11/16 12:17) Procedures/tests Complete & Pending: Procedures Performed prior 72 hours Category Date Time Status MR cervical spine wo con [MR] Routine MRI 11/14/16 07:00 Completed EV echocardiogram Routine Y 11/12/16 17:48 Completed Date of admission: 11/11/16 16:33 Primary care physician: Satish Nicole Consults: 11/11/16 16:49 Consult to Cardiology [CONS] Routine Comment: Consulting Provider: [facility] [place] Reason for Consult: Chest pain; Moderate CAD on CT chest Call Completed: No Discharging clinician: Huber Nichols Anticipated date of discharge: 11/14/16 - Patient Status Disposition: Home, Self-Care Condition: Good Overall status at discharge: patient is progressing back to baseline - Discharge Instructions Follow Up With: Satish Nicole DO [Primary Care Provider] - Yong Brown MD [Partnered Physician] - (within 7 days of discharge for cervial foraminal stenosis and moderate cervical spinal canal steonsis. ) - Diet and Activity Activity: increase activity as tolerated Diet: low fat, low cholesterol, low salt diet Hospital course: Mr. Saavedra is a 61 year old male - Time Spent with Patient Total time spent providing and/or coordinating discharge services: - Constitutional Vitals: Temp Pulse Resp BP Pulse Ox 97.7 F 57 16 122/76 95 11/14/16 07:05 11/14/16 07:05 11/14/16 07:05 11/14/16 12:39 11/14/16 07:56 General appearance: Present: A&O X 3, pleasant, answers questions appropriately - Head Head exam: Present: atraumatic, normocephalic - Eye Eye exam: Present: EOMI, PERRL, conjuntiva pink, sclera anicteric - Neck Neck exam general surgery: Present: supple, trachea midline. Absent: lymphadenopathy - Respiratory Respiratory exam: Present: CTAB. Absent: accessory muscle use, rales, rhonchi, wheezes - Cardiovascular Cardiovascular exam: Present: bradycardia, +S1, +S2. Absent: diastolic murmur, gallop, rubs, systolic murmur - GI/Abdominal GI/Abdominal exam: Present: normal bowel sounds, soft, no peritoneal signs. Absent: distended, tenderness - Extremities Exam Extremities exam: Present: warm, radial pulses palpable and symetrical. Absent : calf tenderness, cyanotic, pedal edema - Neurological Exam Neurological exam: Present: CN II-XII intact, oriented X3, no focal deficits. Absent: pronater drift, facial droop, speech deficit - Skin Skin exam: Present: dry, intact
--- NOTE | 2016-11-14 15:31 | Internal Med Progress Note ---
<Huber Nichols - Last Filed: 11/14/16 15:28> Date of Encounter: 11/14/16 Time of Encounter: 10:00 - Assessment and plan (1) Chest pain Current Visit: Yes Status: Resolved Assessment and plan: Resolved. Qualifiers: Chest pain type: other chest pain Qualified Code(s): R07.89 - Other chest pain; R07.8 - Other chest pain (2) Cervical stenosis of spinal canal Current Visit: Yes Status: Chronic Assessment and plan: MRI shows left paracentral disc extrution at C6-C7 and moderate central spinal canal narrowing with severe left foraminal narrowing. Also at C5-C6 it shows moderate central spinal canal stenosis with severe bilateral foraminal narrowing. C4-C5 mild central spinal canal narrowing with moderate-severe right foraminal narrowing. Dr. Jones has been consulted for further evaluation of patients cervical pathology. (3) Hypertension Current Visit: Yes Status: Chronic Assessment and plan: Patients BP is under control. His atenolol with be discontinued at this time as his HR stays in high 50s or low 60s. Qualifiers: Hypertension type: essential hypertension Qualified Code(s): I10 - Essential (primary) hypertension (4) WENDY (obstructive sleep apnea) Current Visit: Yes Status: Suspected Assessment and plan: Patient will need outpatient sleep study for evaluation of WENDY. (5) DVT prophylaxis Current Visit: Yes Status: Acute Assessment and plan: Patient should walk 3x/day. (6) 1St degree AV block Current Visit: Yes Status: Acute Assessment and plan: Plan as above. - Subjective Interval history: Patient continues to have left chest pain radiating to his left arm with numbness in his left 2nd and 3rd fingers. He was not d/c because he became bradycardic due to being on atenolol and having new 1st degree av block. Undergoing MRI today. - Constitutional Vitals: Temp Pulse Resp BP Pulse Ox 97.7 F 57 16 122/76 95 11/14/16 07:05 11/14/16 07:05 11/14/16 07:05 11/14/16 12:39 11/14/16 07:56 General appearance: Present: A&O X 3, pleasant, answers questions appropriately - Respiratory Respiratory exam: Present: CTAB. Absent: accessory muscle use, rales, rhonchi, wheezes - Cardiovascular Cardiovascular exam: Present: RRR, +S1, +S2. Absent: diastolic murmur, gallop, rubs, systolic murmur - GI/Abdominal GI/Abdominal exam: Present: normal bowel sounds, soft, no peritoneal signs. Absent: distended, tenderness - Extremities Exam Extremities exam: Present: normal inspection, warm, radial pulses palpable and symetrical. Absent: calf tenderness, cyanotic, pedal edema - Neurological Exam Neurological exam: Present: CN II-XII intact, motor sensory deficit (Left 2nd and 3rd finger ), oriented X3, no focal deficits. Absent: pronater drift, facial droop, speech deficit Internal Medicine: Result - Labs CBC & Chem 7: 11/14/16 04:41 11/14/16 04:41 Labs: Short CBC 11/14/16 Range/Units 04:41 WBC 12.6 H (4.3-11.1) K/mcL Hgb 16.1 (12.9-16.9) g/dL Hct 46.9 (37.5-50.1) % Plt Count 199 (140-400) K/mcL BMP 11/14/16 04:41 Sodium 137 Potassium 3.6 Chloride 99 Carbon Dioxide 29 BUN 15 Creatinine 0.70 L Glucose 109 H Calcium 9.3 - ABG Interpretation ABG results: ABG ABG pH 7.37 pH Units (7.32-7.45) 11/11/16 20:05 ABG pCO2 55 mmHg (35-45) H 11/11/16 20:05 ABG pO2 64 mmHg (85-104) L 11/11/16 20:05 ABG O2 Saturation 91 % (95-98) L 11/11/16 20:05 PT/INR, D-dimer PT 12.4 Seconds (9.4-12.1) H 11/11/16 12:30 - Impressions Impressions Cervical Spine MRI 11/14/16 07:00 IMPRESSION: 1. There is a left paracentral disc extrusion at C6-C7, with caudal migration of disc that may be contacting the exiting left C7 and C8 nerve roots. Moderate central spinal canal narrowing is noted at this level with severe left foraminal narrowing. 2. Moderate central spinal canal stenosis at C5-C6 with severe bilateral foraminal narrowing, right side greater than left. 3. Mild central spinal canal narrowing at C4-C5 with moderate-severe right foraminal narrowing. 4. Mild central spinal canal narrowing at C3-C4 with moderate-severe left, and moderate right foraminal narrowing. D/ / 11/14/2016 13:36:22 Lux Reed MD / [email or web address] Interpreting Provider: Lux Reed MD Consult Discharge Plan - Plan Referrals: [facility] [Provider Group] - 11/29/16 1:30 pm Yong Brown MD [Partnered Physician] - (within 7 days of discharge for cervial foraminal stenosis and moderate cervical spinal canal steonsis. ) Satish Nicole DO [Primary Care Provider] - Prescriptions: Albuterol Sulfate [Albuterol Inhaler] 2 puff IH Q6HR PRN #1 inh PRN Reason: Shortness Of Breath/Wheezing HYDROcodone/Acet 5/325 mg [[place] 5-325 mg] 1 tab PO Q6HR PRN #20 tablet PRN Reason: Severe Pain Atenolol [Tenormin] 50 mg PO DAILY #30 tablet Omeprazole [PriLOSEC] 20 mg PO DAILY@0630 #60 capsule. Tiotropium [Spiriva] 18 mcg IH DAILYR #30 inh <Sascha Duarte - Last Filed: 11/14/16 19:35> Date of Encounter: 11/14/16 - Assessment and plan (1) Cervical stenosis of spinal canal Current Visit: Yes Status: Chronic (2) Bradycardia Current Visit: Yes Status: Acute (3) Cervical radiculopathy Current Visit: Yes Status: Acute (4) WENDY (obstructive sleep apnea) Current Visit: Yes Status: Suspected (5) Hypertension Current Visit: Yes Status: Chronic Qualifiers: Hypertension type: essential hypertension Qualified Code(s): I10 - Essential (primary) hypertension (6) Chest pain Current Visit: Yes Status: Resolved Qualifiers: Chest pain type: other chest pain Qualified Code(s): R07.89 - Other chest pain; R07.8 - Other chest pain - Constitutional Vitals: Temp Pulse Resp BP Pulse Ox 97.9 F 58 20 121/81 95 11/14/16 16:06 11/14/16 16:06 11/14/16 16:06 11/14/16 16:06 11/14/16 16:06 Internal Medicine: Result - Labs CBC & Chem 7: 11/14/16 04:41 11/14/16 04:41 Labs: Short CBC 11/14/16 Range/Units 04:41 WBC 12.6 H (4.3-11.1) K/mcL Hgb 16.1 (12.9-16.9) g/dL Hct 46.9 (37.5-50.1) % Plt Count 199 (140-400) K/mcL BMP 11/14/16 04:41 Sodium 137 Potassium 3.6 Chloride 99 Carbon Dioxide 29 BUN 15 Creatinine 0.70 L Glucose 109 H Calcium 9.3 - ABG Interpretation ABG results: ABG ABG pH 7.37 pH Units (7.32-7.45) 11/11/16 20:05 ABG pCO2 55 mmHg (35-45) H 11/11/16 20:05 ABG pO2 64 mmHg (85-104) L 11/11/16 20:05 ABG O2 Saturation 91 % (95-98) L 11/11/16 20:05 PT/INR, D-dimer PT 12.4 Seconds (9.4-12.1) H 11/11/16 12:30 - Impressions Impressions Cervical Spine MRI 11/14/16 07:00 IMPRESSION: 1. There is a left paracentral disc extrusion at C6-C7, with caudal migration of disc that may be contacting the exiting left C7 and C8 nerve roots. Moderate central spinal canal narrowing is noted at this level with severe left foraminal narrowing. 2. Moderate central spinal canal stenosis at C5-C6 with severe bilateral foraminal narrowing, right side greater than left. 3. Mild central spinal canal narrowing at C4-C5 with moderate-severe right foraminal narrowing. 4. Mild central spinal canal narrowing at C3-C4 with moderate-severe left, and moderate right foraminal narrowing. D/ / 11/14/2016 13:36:22 Lux Reed MD / [email or web address] Interpreting Provider: Lux Reed MD - Attending Attestation I examined this patient and my medical decision-making was reviewed with the Resident Physician. I agree with the documented findings, disposition and treatment plan as described except to the extent set forth below. Mr. Saavedra is currently in observation for severe L arm pain and parasthesias. MRI shows nerve compression and disc herniation. Mr. Saavedra continues to have pain requiring pain meds. No appetite. Exam Alert. Mod distress due to pain Heart reg - sp Lungs clear I/P 1. LUE parasthesias /pain - MRI with disc herniation. Dr. Medina consulted. Decadron given. 2. Bradycardia - improving off metoprolol Further diagnoses and plan as above. Hold d/c today.
[2016-11-14] MEDS ORDERED: Dexamethasone 10 MG/ML VIAL IVP ONE (17:56)
[2016-11-15] MEDS: traMADol 50 MG TABLET PO PRN ×3 (00:10→18:01)
[2016-11-15] MEDS: *HR* HYDROcodone/Acet 5/325 mg TABLET PO PRN ×3 (02:19→16:25)
[2016-11-15] MEDS: amLODIPine 5 MG TABLET PO SCH (08:11)
--- NOTE | 2016-11-15 08:11 | Spinal Consult Note ---
Date of Encounter: 11/15/16 Time of Encounter: 08:09 Assessment and Plan (1) Cervical radiculopathy Current Visit: No Status: Chronic On exam he is in mild distress complaining of left arm pain. AFVSS. He has weakness in the left bicep and left tricep which is 4 on a motor scale. He has a negative Hoffmans sign. He has no clonus. MRI of the cervical spine reveals moderate central stenosis at C5-6 and C6-7 and severe foraminal stenosis on the left at C5-6 and C6-7. Impression: 1) Cervical stenosis 2) Cervical radiculopathy 3) Focal motor deficit Plan) Due to his concerning weakness and risk for additional or permanent neurological injury as well as intractable pain I find it reasonable to consider surgery n the form of an anterior cervical decompression and fusion C5- C7. Risks and benefits were discussed and the patient would like to proceed. We will add on schedule tomorrow after medical optimization and clearance is obtained. (2) Focal motor deficit Current Visit: No Status: Chronic History of Present Illness Chief complaint: left arm pain and weakness HPI: Mr. Saavedra is a 61 year old male amitted with chest pain and left arm pain. His pain was severe so he went to ER for evaluation and management. Cardiac work up negative but further work ups revealed severe cervical stenosis. States the arm pain is an 8 on a pain scale, associated with parasthesias and numbness. Also complains of weakness in the arm. No gait diffficulty, fever or chills. Past Med Surg Social Fam HX - Past Medical History Medical history: GERD, hyperlipidemia, hypertension Psychiatric history: no psych history - Past Surgical History Surgical History: herniorrhaphy, other - Social History Smoking Status: Former smoker Packs per day: 2-3 PPD x 20 yrs Alcohol use: heavy Drug use: none - Family History Brother Living Status: Age at : 50 Cause of : [place] Hx Family Cardiac Disorders: Yes (CAD @ 51) Sister Living Status: Age at : 60 Cause of : [place] Hx Family Cardiac Disorders: Yes (CAD @ 60) Hx Family Neurologic Disorders: Yes (ALS) Mother Living Status: Still Living Hx Family Cardiac Disorders: Yes (CAD) Medications and Allergies Amlodipine [Norvasc] 5 mg PO DAILY 11/11/16 [History] Aspirin 325 mg PO DAILY 11/11/16 [History] Ferrous Sulfate 325 mg PO DAILY 11/11/16 [History] Losartan/Hydrochlorothiazide [Losartan-Hctz 100-25 mg Tab] 1 tab PO DAILY [History] Multivitamin [Multi-Day Vitamins] 1 each PO DAILY 11/11/16 [History] Tramadol HCl 50 mg PO Q6H PRN 11/11/16 [History] Albuterol Sulfate [Albuterol Inhaler] 2 puff IH Q6HR PRN #1 inh 11/12/16 [Rx] Atenolol [Tenormin] 50 mg PO DAILY #30 tablet 11/12/16 [Rx] HYDROcodone/Acet 5/325 mg [[place] 5-325 mg] 1 tab PO Q6HR PRN #20 tablet [Rx] Omeprazole [PriLOSEC] 20 mg PO DAILY@0630 #60 capsule.dr 11/12/16 [Rx] Tiotropium [Spiriva] 18 mcg IH DAILYR #30 inh 11/12/16 [Rx] Allergies No Known Allergies Allergy (Verified 11/11/16 12:17) Results - Labs Result Diagrams: 11/14/16 04:41 11/14/16 04:41 Labs: Abnormal lab results WBC 12.6 K/mcL (4.3-11.1) H 11/14/16 04:41 MPV 9.2 fL (9.4-12.4) L 11/14/16 04:41 Neutrophils # 13.0 K/mcL (1.6-8.9) H 11/12/16 06:14 PT 12.4 Seconds (9.4-12.1) H 11/11/16 12:30 ABG pCO2 55 mmHg (35-45) H 11/11/16 20:05 ABG pO2 64 mmHg (85-104) L 11/11/16 20:05 ABG HCO3 31.8 mEQ/L (21-27) H 11/11/16 20:05 ABG Total CO2 33.5 mEq/L (20-26) H 11/11/16 20:05 ABG O2 Saturation 91 % (95-98) L 11/11/16 20:05 ABG Base Excess 4.6 mEq/L (-2.0 to 3.0) H 11/11/16 20:05 Creatinine 0.70 mg/dL (0.72-1.25) L 11/14/16 04:41 Glucose 109 mg/dL (70-99) H 11/14/16 04:41 C-Reactive Protein 5 mg/L (Less than 5) H 11/11/16 12:30 Globulin 4.2 g/dL (2.4-3.5) H 11/11/16 12:30 Albumin/Globulin Ratio 0.8 (1.1-2.2) L 11/11/16 12:30 All other labs normal. Consult Discharge Plan - Plan Referrals: [facility] [Provider Group] - 11/29/16 1:30 pm Yong Brown MD [Partnered Physician] - (within 7 days of discharge for cervial foraminal stenosis and moderate cervical spinal canal steonsis. ) Satish Nicole DO [Primary Care Provider] - Prescriptions: Albuterol Sulfate [Albuterol Inhaler] 2 puff IH Q6HR PRN #1 inh PRN Reason: Shortness Of Breath/Wheezing HYDROcodone/Acet 5/325 mg [[place] 5-325 mg] 1 tab PO Q6HR PRN #20 tablet PRN Reason: Severe Pain Atenolol [Tenormin] 50 mg PO DAILY #30 tablet Omeprazole [PriLOSEC] 20 mg PO DAILY@0630 #60 capsule. Tiotropium [Spiriva] 18 mcg IH DAILYR #30 inh
[2016-11-15] MEDS: Thiamine (B-1) 100 MG TABLET PO SCH (08:12)
[2016-11-15] MEDS: Folic Acid 1 MG TABLET PO SCH (08:12)
[2016-11-15] MEDS: Losartan/HCTZ 50-12.5 TABLET PO SCH (08:12)
[2016-11-15] MEDS: Tiotropium 18 MCG inhalation IH SCH (08:17)
--- NOTE | 2016-11-15 08:53 | Internal Med Progress Note ---
<Huber Nichols - Last Filed: 11/15/16 18:06> Date of Encounter: 11/15/16 Time of Encounter: 08:53 - Assessment and plan (1) Cervical stenosis of spinal canal Current Visit: Yes Status: Chronic Assessment and plan: Patient will undergo anterior cervical decompression and C5-C7 fusion for cervical stenosis, cervical radiculopathy tomorrow by Dr. Mccormack. NPO diet for surgery. (2) Hypertension Current Visit: Yes Status: Chronic Assessment and plan: Controlled. Continue [facility] Qualifiers: Hypertension type: essential hypertension Qualified Code(s): I10 - Essential (primary) hypertension (3) DVT prophylaxis Current Visit: Yes Status: Acute Assessment and plan: Heparin SQ (4) 1St degree AV block Current Visit: Yes Status: Acute Assessment and plan: After patients atenolol was held his HR has increased to 60-70s. - Subjective Interval history: Patient continues to have left chest pain radiating to his left arm with numbness in his left 2nd and 3rd fingers. He had no overnight complaints. Dr. Jones has recommended surgery tomorrow where he will do a anterior cervical decompression and fusion C5-C7. - Constitutional Vitals: Temp Pulse Resp BP Pulse Ox 97.8 F 62 18 160/92 94 L 11/15/16 08:09 11/15/16 08:09 11/15/16 08:17 11/15/16 08:09 11/15/16 08:17 General appearance: Present: A&O X 3, pleasant, answers questions appropriately - Respiratory Respiratory exam: Present: CTAB. Absent: accessory muscle use, rales, rhonchi, wheezes - Cardiovascular Cardiovascular exam: Present: RRR, +S1, +S2. Absent: diastolic murmur, gallop, rubs, systolic murmur - GI/Abdominal GI/Abdominal exam: Present: normal bowel sounds, soft, no peritoneal signs. Absent: distended, tenderness - Extremities Exam Extremities exam: Present: warm, radial pulses palpable and symetrical. Absent : calf tenderness, cyanotic, pedal edema - Neurological Exam Neurological exam: Present: CN II-XII intact, motor sensory deficit (decrease in light touch in 2nd and 3rd digits of right arm. ), oriented X3, no focal deficits. Absent: strengths equal and symetr throughout (4/5 r. bread panner strength and 4/5 R. biceps flexion), pronater drift, facial droop, speech deficit Internal Medicine: Result - Labs CBC & Chem 7: 11/14/16 04:41 11/14/16 04:41 - ABG Interpretation ABG results: ABG ABG pH 7.37 pH Units (7.32-7.45) 11/11/16 20:05 ABG pCO2 55 mmHg (35-45) H 11/11/16 20:05 ABG pO2 64 mmHg (85-104) L 11/11/16 20:05 ABG O2 Saturation 91 % (95-98) L 11/11/16 20:05 PT/INR, D-dimer PT 12.4 Seconds (9.4-12.1) H 11/11/16 12:30 - Impressions Impressions Cervical Spine MRI 11/14/16 07:00 IMPRESSION: 1. There is a left paracentral disc extrusion at C6-C7, with caudal migration of disc that may be contacting the exiting left C7 and C8 nerve roots. Moderate central spinal canal narrowing is noted at this level with severe left foraminal narrowing. 2. Moderate central spinal canal stenosis at C5-C6 with severe bilateral foraminal narrowing, right side greater than left. 3. Mild central spinal canal narrowing at C4-C5 with moderate-severe right foraminal narrowing. 4. Mild central spinal canal narrowing at C3-C4 with moderate-severe left, and moderate right foraminal narrowing. D/ / 11/14/2016 13:36:22 Lux Reed MD / [facility] Interpreting Provider: Lux Reed MD Consult Discharge Plan - Plan Referrals: [facility] [Provider Group] - 11/29/16 1:30 pm Yong Brown MD [Partnered Physician] - (within 7 days of discharge for cervial foraminal stenosis and moderate cervical spinal canal steonsis. ) Satish Nicole DO [Primary Care Provider] - Prescriptions: Albuterol Sulfate [Albuterol Inhaler] 2 puff IH Q6HR PRN #1 inh PRN Reason: Shortness Of Breath/Wheezing HYDROcodone/Acet 5/325 mg [[place] 5-325 mg] 1 tab PO Q6HR PRN #20 tablet PRN Reason: Severe Pain Atenolol [Tenormin] 50 mg PO DAILY #30 tablet Omeprazole [PriLOSEC] 20 mg PO DAILY@0630 #60 capsule. Tiotropium [Spiriva] 18 mcg IH DAILYR #30 inh <Freddy Conti P - Last Filed: 11/15/16 18:55> Date of Encounter: 11/15/16 - Constitutional Vitals: Temp Pulse Resp BP Pulse Ox 97.8 F 56 20 133/85 92 L 11/15/16 16:55 11/15/16 16:55 11/15/16 16:55 11/15/16 16:55 11/15/16 16:55 Internal Medicine: Result - Labs CBC & Chem 7: 11/14/16 04:41 11/14/16 04:41 - ABG Interpretation ABG results: ABG ABG pH 7.37 pH Units (7.32-7.45) 11/11/16 20:05 ABG pCO2 55 mmHg (35-45) H 11/11/16 20:05 ABG pO2 64 mmHg (85-104) L 11/11/16 20:05 ABG O2 Saturation 91 % (95-98) L 11/11/16 20:05 PT/INR, D-dimer PT 12.4 Seconds (9.4-12.1) H 11/11/16 12:30 - Attending Attestation I examined this patient and my medical decision-making was reviewed with the GOLF CART MECHANIC/PA/Advanced Practice Nurse/Resident Physician. I agree with the documented findings, disposition and treatment plan as described except to the extent set forth below.
[2016-11-15] MEDS: Acetaminophen 325 MG TABLET PO PRN (13:06)
[2016-11-15] MEDS ORDERED: ceFAZolin 2,000 MG in D5% in Water 100 ML IVPB ONE (16:00)
[2016-11-16] MEDS: *HR* Heparin 5,000 UNIT/ML VIAL SQ SCH ×2 (01:01→06:10)
[2016-11-16] MEDS: traMADol 50 MG TABLET PO PRN (01:02)
[2016-11-16 07:51] LABS: BUN/Creatinine Ratio 27 (6-26); Blood Urea Nitrogen 20 mg/dL (8-26); Calcium 9.5 mg/dL (8.6-10.8); Carbon Dioxide 32 mEq/L (19-29); Chloride 100 mEq/L (98-109); Glucose 103 mg/dL (70-99); Osmolality,Calculated 289 (280-300); Sodium 138 mEq/L (136-145); eGFR For African Americans > 60 (> 60); eGFR For Non-African Americans > 60 (> 60)
[2016-11-16 07:52] LABS: Potassium 3.8 mEq/L (3.5-4.5)
[2016-11-16 07:56] LABS: Basophils % 0.4 %; Eosinophils # 0.3 K/mcL (0.0-0.6); Eosinophils % 2.4 %; Hematocrit 46.7 % (37.5-50.1); Hemoglobin 15.7 g/dL (12.9-16.9); Immature Granulocytes % 0.7 % (0-4); Lymphocytes # 2.4 K/mcL (0.6-4.6); Lymphocytes % 22.3 %; Mean Corpuscular HGB Conc 33.6 g/dL (31.6-35.5); Mean Corpuscular Hemoglobin 29.9 pg (28.0-33.3); Mean Platelet Volume 9.1 fL (9.4-12.4); Monocytes # 0.8 K/mcL (0.0-1.3); Neutrophils # 7.2 K/mcL (1.6-8.9); Platelet Count 229 K/mcL (140-400); Red Blood Count 5.25 M/mcL (4.19-5.50); Red Cell Distribution Width 11.7 % (11.5-14.5); Segmented Neutrophils % 67.2 %
[2016-11-16] MEDS ORDERED: ceFAZolin 2,000 MG in D5% in Water 100 ML IVPB ONE (08:00)
[2016-11-16] MEDS: Tiotropium 18 MCG inhalation IH SCH (08:07)
[2016-11-16] MEDS: Losartan/HCTZ 50-12.5 TABLET PO SCH (08:08)
[2016-11-16] MEDS: amLODIPine 5 MG TABLET PO SCH (08:08)
[2016-11-16] MEDS: Folic Acid 1 MG TABLET PO SCH (08:08)
[2016-11-16] MEDS: Thiamine (B-1) 100 MG TABLET PO SCH (08:09)
[2016-11-16] MEDS ORDERED: Dexamethasone 4 MG/ML VIAL ONE (09:41)
[2016-11-16] MEDS ORDERED: *HR* Propofol 200 MG/20 ML VIAL IVP ONE (09:41)
[2016-11-16] MEDS ORDERED: *HR* FentaNYL (PF) 100 MCG/2 ML VIAL ONE (09:41)
[2016-11-16] MEDS ORDERED: Ondansetron 4 MG/2 ML VIAL ONE (09:41)
[2016-11-16] MEDS ORDERED: *HR* Midazolam HCl 2 MG/2 ML VIAL ONE (09:41)
[2016-11-16] MEDS ORDERED: *HR* Succinylcholine 200 MG/10 ML VIAL IVP ONE (09:41)
[2016-11-16] MEDS ORDERED: Lidocaine -MPF 2% 2 ML VIAL ONE (09:41)
[2016-11-16] MEDS ORDERED: *HR* Remifentanil 1 MG VIAL IVP ONE (09:45)
[2016-11-16] MEDS ORDERED: Lidocaine -MPF 4% 5 ML AMPUL ONE (10:31)
--- NOTE | 2016-11-16 10:55 | Internal Med Progress Note ---
<Huber Nichols - Last Filed: 11/16/16 10:51> Date of Encounter: 11/16/16 Time of Encounter: 10:51 - Assessment and plan (1) Cervical stenosis of spinal canal Current Visit: Yes Status: Chronic Assessment and plan: Patient will undergo anterior cervical decompression and C5-C7 fusion for cervical stenosis, cervical radiculopathy today by Dr. Mccormack. NPO diet for surgery. Will obtain troponin and CBC at 10PM for post surgical assessment. Continue GI prophylaxis. Regular diet after surgery. (2) Hypertension Current Visit: Yes Status: Chronic Assessment and plan: Controlled. Continue [facility] Qualifiers: Hypertension type: essential hypertension Qualified Code(s): I10 - Essential (primary) hypertension (3) DVT prophylaxis Current Visit: Yes Status: Acute Assessment and plan: Heparin SQ - Subjective Interval history: Patient continues to have left chest pain radiating to his left arm with numbness in his left 2nd and 3rd fingers. He had no overnight complaints. Will undergo anterior cervical decompression and fusion C5-C7 today. - Constitutional Vitals: Temp Pulse Resp BP Pulse Ox 97.3 F L 50 16 137/80 95 11/16/16 07:04 11/16/16 07:04 11/16/16 08:08 11/16/16 07:04 11/16/16 08:08 General appearance: Present: A&O X 3, pleasant, answers questions appropriately - Neck Neck exam general surgery: Present: supple, trachea midline. Absent: lymphadenopathy - Respiratory Respiratory exam: Present: CTAB. Absent: accessory muscle use, rales, rhonchi, wheezes - Cardiovascular Cardiovascular exam: Present: RRR, +S1, +S2. Absent: diastolic murmur, gallop, rubs, systolic murmur - GI/Abdominal GI/Abdominal exam: Present: normal bowel sounds, soft, no peritoneal signs. Absent: distended, tenderness - Extremities Exam Extremities exam: Present: warm, radial pulses palpable and symetrical. Absent : calf tenderness, cyanotic, pedal edema - Neurological Exam Neurological exam: Present: CN II-XII intact, motor sensory deficit, oriented X3 , no focal deficits. Absent: strengths equal and symetr throughout, pronater drift, facial droop, speech deficit Internal Medicine: Result - Labs CBC & Chem 7: 11/16/16 07:31 11/16/16 07:31 Labs: Short CBC 11/16/16 Range/Units 07:31 WBC 10.7 (4.3-11.1) K/mcL Hgb 15.7 (12.9-16.9) g/dL Hct 46.7 (37.5-50.1) % Plt Count 229 (140-400) K/mcL Neutrophils # 7.2 (1.6-8.9) K/mcL BMP 11/16/16 07:31 Sodium 138 Potassium 3.8 Chloride 100 Carbon Dioxide 32 H BUN 20 Creatinine 0.75 Glucose 103 H Calcium 9.5 - ABG Interpretation ABG results: ABG ABG pH 7.37 pH Units (7.32-7.45) 11/11/16 20:05 ABG pCO2 55 mmHg (35-45) H 11/11/16 20:05 ABG pO2 64 mmHg (85-104) L 11/11/16 20:05 ABG O2 Saturation 91 % (95-98) L 11/11/16 20:05 PT/INR, D-dimer PT 12.4 Seconds (9.4-12.1) H 11/11/16 12:30 - VTE Documentation of Mechanical Device: Graduated compression elastic hosiery Consult Discharge Plan - Plan Referrals: [facility] [Provider Group] - 11/29/16 1:30 pm Yong Brown MD [Partnered Physician] - (within 7 days of discharge for cervial foraminal stenosis and moderate cervical spinal canal steonsis. ) Satish Nicole DO [Primary Care Provider] - <Freddy Conti P - Last Filed: 11/16/16 18:50> - Constitutional Vitals: Temp Pulse Resp BP Pulse Ox 98.5 F 86 16 160/84 96 11/16/16 17:00 11/16/16 17:00 11/16/16 17:00 11/16/16 17:48 11/16/16 17:00 Internal Medicine: Result - Labs CBC & Chem 7: 11/16/16 07:31 11/16/16 07:31 Labs: Short CBC 11/16/16 Range/Units 07:31 WBC 10.7 (4.3-11.1) K/mcL Hgb 15.7 (12.9-16.9) g/dL Hct 46.7 (37.5-50.1) % Plt Count 229 (140-400) K/mcL Neutrophils # 7.2 (1.6-8.9) K/mcL BMP 11/16/16 07:31 Sodium 138 Potassium 3.8 Chloride 100 Carbon Dioxide 32 H BUN 20 Creatinine 0.75 Glucose 103 H Calcium 9.5 - ABG Interpretation ABG results: ABG ABG pH 7.37 pH Units (7.32-7.45) 11/11/16 20:05 ABG pCO2 55 mmHg (35-45) H 11/11/16 20:05 ABG pO2 64 mmHg (85-104) L 11/11/16 20:05 ABG O2 Saturation 91 % (95-98) L 11/11/16 20:05 PT/INR, D-dimer PT 12.4 Seconds (9.4-12.1) H 11/11/16 12:30 - Impressions Impressions Cervical Spine X-Ray 11/16/16 00:00 IMPRESSION: Intraoperative sagittal view of the cervical spine demonstrates a surgical probe at the anterior aspect of the C5-6 disc space. The results were reported to Dr. Medina at 12:50 p.m. on November 16, 2016. D/ / Gurdeep Hardin MD / Gurdeep Hardin MD Interpreting Provider: Gurdeep Hardin MD Cervical Spine X-Ray 11/16/16 00:00 IMPRESSION: Lower ACDF partially visualized. D/ / Carl Ennis MD / Carl Ennis MD Interpreting Provider: Carl Ennis MD - Attending Attestation I examined this patient and my medical decision-making was reviewed with the ROD FINISHER/PA/Advanced Practice Nurse/Resident Physician. I agree with the documented findings, disposition and treatment plan as described except to the extent set forth below.
--- NOTE | 2016-11-16 11:10 | Anesthesia Evaluation PreOp ---
Date of Encounter: 11/16/16 Time of Encounter: 11:07 - Past History Planned Operation: C5-7 ACDF Cardiac History: HTN (maintained on Norvasc, Atenolol, Losartan-Hctz), Hyperlipidemia, Other (ECHO 11/12/16 LVEF 65%,normal LV size & fx. Mildly dilated LA. NO PulmHtn) Pulmonary History: Former smoker (quit s/p 2-3ppd x 20yrs), COPD (maitnained on ProAir, Spiriva) MGMT ANALYST History: Other (Cervical Stenosis) Other Medical History: GERD (maintained on Omeprazole) Anesthesia History: No Prior Anesthetic Complications, Past Anesthesia (Hernia Repair) Alcohol Use: heavy Drug use: none Medications and Allergies Amlodipine [Norvasc] 5 mg PO DAILY 11/11/16 [History] Aspirin 325 mg PO DAILY 11/11/16 [History] Ferrous Sulfate 325 mg PO DAILY 11/11/16 [History] Losartan/Hydrochlorothiazide [Losartan-Hctz 100-25 mg Tab] 1 tab PO DAILY [History] Multivitamin [Multi-Day Vitamins] 1 each PO DAILY 11/11/16 [History] Tramadol HCl 50 mg PO Q6H PRN 11/11/16 [History] Albuterol Sulfate [Albuterol Inhaler] 2 puff IH Q6HR PRN #1 inh 11/12/16 [Rx] Atenolol [Tenormin] 50 mg PO DAILY #30 tablet 11/12/16 [Rx] HYDROcodone/Acet 5/325 mg [[facility] 5-325 mg] 1 tab PO Q6HR PRN #20 tablet [Rx] Omeprazole [PriLOSEC] 20 mg PO DAILY@0630 #60 capsule. 11/12/16 [Rx] Tiotropium [Spiriva] 18 mcg IH DAILYR #30 inh 11/12/16 [Rx] Allergies No Known Allergies Allergy (Verified 11/11/16 12:17) - Meds/Allergy Pre-op Review Medications Reviewed: Yes Allergies Reviewed: Yes Beta Blockers on Current Med List: Yes (Atenolol held since 11/13/16 re: Bradycardia 46bpm) Anesthesia Results - Labs 11/16/16 07:31 11/16/16 07:31 - Imaging EKG: image reviewed (46bpm SB w/ 1st degree AVB) Anesthesia Exam Vital Signs Temp Pulse Resp BP Pulse Ox 11/16/16 08:08 16 95 11/16/16 07:04 97.3 F L 50 16 137/80 95 11/16/16 07:00 95 11/16/16 04:00 97.9 F 64 16 112/79 97 11/15/16 20:00 97.6 F 54 16 136/72 93 L 11/15/16 16:55 97.8 F 56 20 133/85 92 L Intake and Output 11/15/16 11/16/16 11/16/16 23:59 07:59 15:59 Intake Total 120 / 120 0 / 0 0 / 0 Output Total 500 / 500 0 / 0 Balance -380 / -380 0 / 0 0 / 0 Intake: Oral 120 / 120 0 / 0 0 / 0 Output: Urine 500 / 500 0 / 0 Other: Meal Dinner Breakfast Percent of Meal Consumed 100% 0% # Voids 0 Weight 106.2 kg Patient Weight 11/16/16 23:59 Weight 106.2 kg Height: 5'10" Weight: 234# BMi = 34 NPO (# of Hours): mNOC - HEENT Pupil (Motor): Pupils equal, EOMI Mallampati: II Teeth: Normal Oral Opening: Greater than 3 - MGMT ANALYST LOC: Oriented, Confused MGMT ANALYST Motor: Normal RUE, Normal RLE, Normal LLE, Normal Face, Deficit LUE (L- shoulder pain/weakness) MGMT ANALYST Sensory: Normal: RUE, RLE, LLE, Face, Deficit: LUE (L-shoulder pain/weakness ) - Cardiac Rhythm: Regular Murmur: None JVD: No - Pulmonary Breath Sounds: bilateral Clear Respiratory Effort: Symmetrical Anesthesia Assess/Plan ASA Score: 3 (HTN, Chol, Cervcal Radiculopathy, COPD, OBesity) Modified [place] Scale for Level of Consciousness: Cooperative, oriented, and tranquil Anesthetic Plan: General Monitoring Plan: Standard Monitors Recovery Plan: PACU Anes Supervising Prov Stmt: Pt seen/evaluated, R&B Discussed, questions answered and consent obtained. Dia Wade MD
[2016-11-16] MEDS ORDERED: Acetaminophen IV 1,000 MG/100 ML INFUS..BTL ONE (11:23)
[2016-11-16] MEDS ORDERED: Gabapentin 300 MG CAPSULE ONE (11:27)
[2016-11-16] MEDS ORDERED: EPHEDrine 50 MG/ML VIAL ONE (12:19)
[2016-11-16] MEDS ORDERED: *HR* Promethazine 25 MG/ML VIAL IVP PRN ×2 (13:04→16:43)
[2016-11-16] MEDS ORDERED: *HR* Labetalol 100 MG/20 ML MDV IVP PRN (13:04)
--- NOTE | 2016-11-16 14:29 | Orthopedic Operative Note ---
Date of procedure: 11/16/16 Pre-op diagnosis: cervical stenosis, cervical radiculopathy Post-op diagnosis: same Operation/Findings: Anterior cervical decompression and fusion C5-C7: :The patient was brought to the operating room and placed supine on the operating room table. Successful general endotracheal anesthesia intubation was performed. Neurophysiologic monitoring personnel placed leads on the upper and lower extremities as well as the cranium for EMG monitoring purposes. Appropriate baseline potentials were noted by the neurophysiologic monitoring staff. Ramos catheter was placed prior to positioning. Compression boots and stockings were used for deep vein thrombosis prophylaxis. Padding was also placed all bony prominences including the ulnar nerve near the medial epicondyles of the elbows were appropriately padded. Mild traction was placed on the bilateral shoulders and taped into place. Preoperative antibiotics were administered. The area from the mandible bilaterally to the upper thoraces was prepped and draped in the usual sterile fashion. A transverse incision was made at the level of the cricoid cartilage which is approximately 3 cm in length and extended from the midline of the cervical spine laterally towards the sternocleidomastoid muscle on the left. We then performed standard medial approach to the carotid sheath. Sponges were used to tease the fascial medial to the sternocleidomastoid muscle while carefully controlling and palpating the carotid artery. Using careful dissection we were able to get to the level of the anterior vertebral bodies and longus coli muscles. The spinal needle was placed at the appropriate C5-6 level, and intraoperative radiograph was obtained which was a cervical spine lateral radiograph. The needle and radiograph confirmed we were at the correct operative level. We further exposed this C5-6 evel by using Bovie cautery under the medial edge of the longus colli muscles to allow them to be retracted approximately 2 mm laterally on each side. An 11 blade was used to perform anterior discectomy at the appropriate C5-6 level after an initial annulotomy of the anterior longitudinal ligament and annulus was performed. Further disc material was removed with pituitary Rongeurs. Subsequently, Synthes pins were placed at the C5 and C6 vertebral bodies respectively to provide distraction. We then used a Trimline cervical retractor which was placed in both medial and lateral as well as inferior superior direction to allow full visualization of the appropriate C5-6 disc and C5 and C6 vertebral bodies. The Leica microscope was brought to the field and the remainder of the procedure was performed under the guidance of this microscope. Using pituitary rongeurs and small curettes, various micro-instruments, a full discectomy was performed at the appropriate C5-6 level. The posterior longitudinal ligament was encountered and appeared partially calcified. A portion of this ligament was removed. After complete and thorough discectomy and removal of spondylitic material was performed, the endplates of the C5 and C6 vertebral bodies were prepared with a bur until allow bleeding of cancellous bone. A 7mm trial graft was evaluated and appeared to fit quite well within the excised C5-6 disc space. A cortico-cancellous allograft of 7 mm was utilized, carefully tapped into place within the C5-6 excised disc space with the aid of a bone tamp. It was seated approximately 2 mm from the anterior edge of the cortex of the adjacent vertebral bodies. We then turned our attention to the C6-7 level where a similar series of procedures was performed including discectomy, removal of spondylitic material, end plate preparation, and trial grafting. An 8mm trial fit well within the C6-7 disc space. A 8 mm allograft was then placed at C6-7. A cervical plate was then placed on the anterior aspect of the C5, C6, and C7 vertebral bodies. The plate was placed in the midline position after drilling six 13 mm self tapping screws and inserting them. They were locked in place using standard Venture plate maneuvers. At this point a lateral radiograph of the cervical spine was obtained and showed satisfactory position of the graft and plate. The wound was copiously irrigated and bleeders encountered were cauterized using Bovie cautery. Platysma was closed with interrupted 2-0 Vicryl sutures. Running 3-0 Monocryl suture was used for skin closure. Sterile dressing was placed over the neck wound. A cervical collar was placed. The patient was transferred to a hospital bed and extubated. The patient was noted to be fully motor and sensory intact in the recovery room at the end of the procedure. The medications. All sponge instrument and needle counts were correct at the end of the procedure. Anesthesia: GETA Surgeon: Sedrick Medina Jr Estimated blood loss (cc): 50 Condition: stable Disposition: PACU
[2016-11-16] MEDS: *HR* HYDROmorphone (PF) 1 MG/ML SYRINGE IVP PRN ×2 (15:09→15:17)
--- NOTE | 2016-11-16 15:48 | Anesthesia Evaluation Post Op ---
Date of Encounter: 11/16/16 Time of Encounter: 15:47 - Vital Signs Vital Signs: Vital Signs/O2 Sat/Glucose, Most Current Temp Pulse Resp BP Pulse Ox 11/16/16 15:41 77 16 157/88 96 11/16/16 15:34 97.4 F L 75 16 149/87 95 11/16/16 15:24 79 16 151/85 94 L 11/16/16 15:14 78 16 155/91 94 L 11/16/16 15:04 97.2 F L 77 16 160/93 94 L 11/16/16 14:54 81 16 165/96 93 L 11/16/16 14:44 86 14 155/93 93 L 11/16/16 14:34 97.0 F L 93 12 158/74 98 - Lungs Lungs: Clear Ascult./Percussion - Airway Airway: Non-obstructed - Cardiovascular Regular Rate - Pain Pain Scale: 3 Pain Scale used: Numeric (1 - 10) - Nausea Vomiting Nausea Vomiting: Not Present - Hydration Hydration: Ice chips, Ramos catheter - Discharge PostOp Status: Transfer Patient to floor Anes Supervising Prov Stmt: Pt seen/evaluated, VSS and pt has met criteria for discharge to floor. - MD Mauro
[2016-11-16] MEDS ORDERED: Ondansetron 4 MG/2 ML VIAL IVP PRN (16:43)
[2016-11-16] MEDS ORDERED: *HR* Morphine 2 MG/ML SYRINGE IVP PRN (16:43)
[2016-11-16] MEDS ORDERED: Naloxone 0.4 MG/ML INJ IVP PRN (16:43)
[2016-11-16] MEDS: Ringers Solution, Lactated 1,000 ML IVC SCH (19:46)
[2016-11-16] MEDS: ceFAZolin 2,000 MG in D5% in Water 100 ML IVPB SCH (19:46)
[2016-11-16 21:36] LABS: Hematocrit 45.1 % (37.5-50.1)
[2016-11-17] MEDS: *HR* OxyCODONE Immed Rel 5 MG TABLET PO PRN ×2 (00:11→16:38)
[2016-11-17] MEDS: ceFAZolin 2,000 MG in D5% in Water 100 ML IVPB SCH (03:42)
[2016-11-17 04:08] LABS: Basophils % 0.1 %; Hematocrit 43.6 % (37.5-50.1); Hemoglobin 14.6 g/dL (12.9-16.9); Immature Granulocytes % 0.4 % (0-4); Lymphocytes # 1.3 K/mcL (0.6-4.6); Lymphocytes % 9.6 %; Mean Corpuscular HGB Conc 33.5 g/dL (31.6-35.5); Mean Corpuscular Hemoglobin 29.4 pg (28.0-33.3); Mean Corpuscular Volume 87.9 fL (83.0-100.0); Mean Platelet Volume 9.1 fL (9.4-12.4); Monocytes # 0.6 K/mcL (0.0-1.3); Monocytes % 4.7 %; Neutrophils # 11.3 K/mcL (1.6-8.9); Platelet Count 231 K/mcL (140-400); Red Blood Count 4.96 M/mcL (4.19-5.50); Red Cell Distribution Width 11.9 % (11.5-14.5); Segmented Neutrophils % 85.2 %
[2016-11-17 04:23] LABS: BUN/Creatinine Ratio 19 (6-26); Blood Urea Nitrogen 13 mg/dL (8-26); Carbon Dioxide 28 mEq/L (19-29); Chloride 103 mEq/L (98-109); Glucose 204 mg/dL (70-99); Osmolality,Calculated 292 (280-300); Potassium 4.1 mEq/L (3.5-4.5); Sodium 138 mEq/L (136-145); eGFR For African Americans > 60 (> 60); eGFR For Non-African Americans > 60 (> 60)
[2016-11-17] MEDS: *HR* Morphine 2 MG/ML SYRINGE IVP PRN (04:57)
[2016-11-17] MEDS: amLODIPine 5 MG TABLET PO SCH (08:20)
[2016-11-17] MEDS: Pantoprazole 40 MG VIAL IVP SCH (08:20)
[2016-11-17] MEDS: Aspirin 325 MG TABLET PO SCH (08:21)
[2016-11-17] MEDS: Multivit/Ca/Min/Fe/FA 1 TAB TABLET PO SCH (08:21)
[2016-11-17] MEDS: Thiamine (B-1) 100 MG TABLET PO SCH (08:21)
[2016-11-17] MEDS ORDERED: Pantoprazole 40 MG VIAL IVP SCH (09:00)
--- NOTE | 2016-11-17 12:58 | Internal Med Progress Note ---
<Huber Nichols - Last Filed: 11/17/16 12:55> Date of Encounter: 11/17/16 Time of Encounter: 06:00 - Assessment and plan (1) Cervical stenosis of spinal canal Current Visit: Yes Status: Chronic Assessment and plan: Status post postop day 1 anterior cervical decompression and C5-C7 fusion for cervical stenosis, cervical radiculopathy today by Dr. Mccormack. Cardiac diet. Patient had one episode of blacking out today while sitting up in a chair. At that time blood pressure was checked and it was 178/93. According to nurse he appeared flushed and complained of dizziness. He has not had any recurrence of this. Patient will stay one more night for continued observation. CBC and BMP tomorrow. (2) Hypertension Current Visit: Yes Status: Chronic Assessment and plan: Patient's blood pressure currently is 144/79. Continue amlodipine. Continue hydralazine when necessary. Qualifiers: Hypertension type: essential hypertension Qualified Code(s): I10 - Essential (primary) hypertension (3) DVT prophylaxis Current Visit: Yes Status: Acute Assessment and plan: Bilateral EPCD's. - Subjective Interval history: Patient is status post postop day 1 anterior cervical decompression and C5-C7 fusion. This morning he reports little pain. He admits to numbness on his third digit. He admits to passing gas. He denies chest pain, palpitations, shortness of breath, abdominal pain, leg swelling. - Constitutional Vitals: Temp Pulse Resp BP Pulse Ox 98.1 F 64 16 144/79 97 11/17/16 10:14 11/17/16 11:00 11/17/16 11:00 11/17/16 11:00 11/17/16 11:00 General appearance: Present: A&O X 3, pleasant, answers questions appropriately - Neck Neck exam general surgery: Present: normal inspection Additional comments: Patient has dressing on anterior neck that is dry and intact. - Respiratory Respiratory exam: Present: CTAB. Absent: accessory muscle use, rales, rhonchi, wheezes - Cardiovascular Cardiovascular exam: Present: RRR, +S1, +S2. Absent: diastolic murmur, gallop, rubs, systolic murmur - GI/Abdominal GI/Abdominal exam: Present: normal bowel sounds, soft, no peritoneal signs. Absent: distended, tenderness - Extremities Exam Extremities exam: Present: warm, radial pulses palpable and symetrical. Absent : calf tenderness, cyanotic, pedal edema Internal Medicine: Result - Labs CBC & Chem 7: 11/17/16 03:53 11/17/16 03:53 Labs: Short CBC 11/16/16 11/17/16 Range/Units 21:28 03:53 WBC 13.3 H (4.3-11.1) K/mcL Hgb 15.0 14.6 (12.9-16.9) g/dL Hct 45.1 43.6 (37.5-50.1) % Plt Count 231 (140-400) K/mcL Neutrophils # 11.3 H (1.6-8.9) K/mcL BMP 11/17/16 03:53 Sodium 138 Potassium 4.1 Chloride 103 Carbon Dioxide 28 BUN 13 Creatinine 0.70 L Glucose 204 H Calcium 9.0 Cardiac Enzymes 11/17/16 Range/Units 03:53 Troponin I 0.00 (0-0.03) ng/mL - ABG Interpretation ABG results: ABG ABG pH 7.37 pH Units (7.32-7.45) 11/11/16 20:05 ABG pCO2 55 mmHg (35-45) H 11/11/16 20:05 ABG pO2 64 mmHg (85-104) L 11/11/16 20:05 ABG O2 Saturation 91 % (95-98) L 11/11/16 20:05 PT/INR, D-dimer PT 12.4 Seconds (9.4-12.1) H 11/11/16 12:30 - Impressions Impressions Cervical Spine X-Ray 11/16/16 00:00 IMPRESSION: Intraoperative sagittal view of the cervical spine demonstrates a surgical probe at the anterior aspect of the C5-6 disc space. The results were reported to Dr. Medina at 12:50 p.m. on November 16, 2016. D/ / Gurdeep Hardin MD / Gurdeep Hardin MD Interpreting Provider: Gurdeep Hardin MD Cervical Spine X-Ray 11/16/16 00:00 IMPRESSION: Lower ACDF partially visualized. D/ / Carl Ennis MD / Carl Ennis MD Interpreting Provider: Carl Ennis MD Cervical Spine X-Ray 11/17/16 08:30 IMPRESSION: Satisfactory postoperative appearance following anterior cervical fusion from C5 through C7. D/ / Raudel Castrejon MD / Raudel Castrejon MD Interpreting Provider: Raudel Castrejon MD - VTE Documentation of Mechanical Device: Graduated compression elastic hosiery Consult Discharge Plan - Plan Referrals: [facility] [Provider Group] - 11/29/16 1:30 pm Yong Brown MD [Partnered Physician] - (within 7 days of discharge for cervial foraminal stenosis and moderate cervical spinal canal steonsis. ) Satish Nicole DO [Primary Care Provider] - <Freddy Conti P - Last Filed: 11/17/16 18:17> - Constitutional Vitals: Temp Pulse Resp BP Pulse Ox 98.2 F 80 16 162/88 96 11/17/16 15:28 11/17/16 15:28 11/17/16 15:28 11/17/16 15:28 11/17/16 15:28 Internal Medicine: Result - Labs CBC & Chem 7: 11/17/16 03:53 11/17/16 03:53 Labs: Short CBC 11/16/16 11/17/16 Range/Units 21:28 03:53 WBC 13.3 H (4.3-11.1) K/mcL Hgb 15.0 14.6 (12.9-16.9) g/dL Hct 45.1 43.6 (37.5-50.1) % Plt Count 231 (140-400) K/mcL Neutrophils # 11.3 H (1.6-8.9) K/mcL BMP 11/17/16 03:53 Sodium 138 Potassium 4.1 Chloride 103 Carbon Dioxide 28 BUN 13 Creatinine 0.70 L Glucose 204 H Calcium 9.0 Cardiac Enzymes 11/17/16 Range/Units 03:53 Troponin I 0.00 (0-0.03) ng/mL - ABG Interpretation ABG results: ABG ABG pH 7.37 pH Units (7.32-7.45) 11/11/16 20:05 ABG pCO2 55 mmHg (35-45) H 11/11/16 20:05 ABG pO2 64 mmHg (85-104) L 11/11/16 20:05 ABG O2 Saturation 91 % (95-98) L 11/11/16 20:05 PT/INR, D-dimer PT 12.4 Seconds (9.4-12.1) H 11/11/16 12:30 - Impressions Impressions Cervical Spine X-Ray 11/17/16 08:30 IMPRESSION: Satisfactory postoperative appearance following anterior cervical fusion from C5 through C7. D/ / Raudel Castrejon MD / Raudel Castrejon MD Interpreting Provider: Raudel Castrejon MD - Attending Attestation I examined this patient and my medical decision-making was reviewed with the FAMILY CASEWORKER/PA/Advanced Practice Nurse/Resident Physician. I agree with the documented findings, disposition and treatment plan as described except to the extent set forth below. pain control with narcotics blood pressure if not controlled after pain is adequately controlled then Hydralazine PRN please hand over case to night team.
--- NOTE | 2016-11-17 13:33 | Spine Progress Note ---
Date of Encounter: 11/17/16 Time of Encounter: 13:32 - Assessment and Plan (1) Cervical radiculopathy Current Visit: No Status: Chronic (2) Focal motor deficit Current Visit: No Status: Chronic Subjective Principal diagnosis: cervical stenosis, cervical radiculopathy Interval history: The patient is without complaints. Left arm pain has resolved. Afebrile vital signs are stable. Incision is clean dry and intact. Neurovascularly intact with regard to bilateral upper extremities. Fires all upper and lower extremity motor groups. Assessment :stable. Plan radiographs satisfactory. Mobilize ,continue analgesics, discharge planning. We will sign off and follow- up with the patient in 2 weeks. Objective Vital signs: Vital Signs Temp Pulse Resp BP Pulse Ox 11/17/16 11:00 64 16 144/79 97 11/17/16 10:14 98.1 F 58 16 147/86 98 11/17/16 06:45 97.9 F 64 16 144/79 97 11/17/16 04:00 97.7 F 59 17 146/77 94 L 11/17/16 00:00 98 F 73 16 174/83 96 11/16/16 19:30 97.8 F 97 16 161/87 96 11/16/16 19:00 97.7 F 88 17 159/81 95 11/16/16 18:30 97.9 F 93 16 162/75 97 11/16/16 17:48 160/84 11/16/16 17:47 158/84 11/16/16 17:46 178/82 11/16/16 17:00 98.5 F 86 16 187/103 96 11/16/16 16:28 98.2 F 80 16 161/94 95 11/16/16 16:14 98 F 83 16 172/97 96 11/16/16 15:41 77 16 157/88 96 11/16/16 15:34 97.4 F L 75 16 149/87 95 11/16/16 15:24 79 16 151/85 94 L 11/16/16 15:14 78 16 155/91 94 L 11/16/16 15:04 97.2 F L 77 16 160/93 94 L 11/16/16 14:54 81 16 165/96 93 L 11/16/16 14:44 86 14 155/93 93 L 11/16/16 14:34 97.0 F L 93 12 158/74 98 Intake and Output 11/16/16 11/17/16 11/17/16 23:59 07:59 15:59 Intake Total 900 / 900 Output Total 3400 / 3400 Balance -2500 / -2500 Intake: IV Fluids 100 / 100 Ancef 2,000 MG In 100 / 100 Dextrose 5% 100 ML @ 200 mls/hr IVPB Q8H [facility] Rx#: [id number] Oral 800 / 800 Output: Urine 350 / 350 Straight Cath 2250 / 2250 Catheter 800 / 800 - Labs CBC & BMP: 11/17/16 03:53 11/17/16 03:53 Labs: Abnormal lab results WBC 13.3 K/mcL (4.3-11.1) H 11/17/16 03:53 MPV 9.1 fL (9.4-12.4) L 11/17/16 03:53 Neutrophils # 11.3 K/mcL (1.6-8.9) H 11/17/16 03:53 PT 12.4 Seconds (9.4-12.1) H 11/11/16 12:30 ABG pCO2 55 mmHg (35-45) H 11/11/16 20:05 ABG pO2 64 mmHg (85-104) L 11/11/16 20:05 ABG HCO3 31.8 mEQ/L (21-27) H 11/11/16 20:05 ABG Total CO2 33.5 mEq/L (20-26) H 11/11/16 20:05 ABG O2 Saturation 91 % (95-98) L 11/11/16 20:05 ABG Base Excess 4.6 mEq/L (-2.0 to 3.0) H 11/11/16 20:05 Creatinine 0.70 mg/dL (0.72-1.25) L 11/17/16 03:53 Glucose 204 mg/dL (70-99) H 11/17/16 03:53 C-Reactive Protein 5 mg/L (Less than 5) H 11/11/16 12:30 Globulin 4.2 g/dL (2.4-3.5) H 11/11/16 12:30 Albumin/Globulin Ratio 0.8 (1.1-2.2) L 11/11/16 12:30 Consult Discharge Plan - Plan Referrals: [facility] [Provider Group] - 11/29/16 1:30 pm Yong Brown MD [Partnered Physician] - (within 7 days of discharge for cervial foraminal stenosis and moderate cervical spinal canal steonsis. ) Satish Nicole DO [Primary Care Provider] -
[2016-11-17] MEDS ORDERED: *HR* Metoprolol 5 MG/5 ML VIAL IVP ONE ×2 (18:09)
[2016-11-17] MEDS: niCARdipine 40 MG/200 ML MLS IVC SCH (19:19)
[2016-11-17] MEDS ORDERED: 0.9 % Sodium Chloride 500 ML ONE (22:09)
[2016-11-17] MEDS: Acetaminophen 325 MG TABLET PO PRN (22:13)
[2016-11-18] MEDS ORDERED: *HR* Promethazine 25 MG/ML VIAL IVP PRN (00:09)
[2016-11-18] MEDS ORDERED: *HR* LORazepam 2 MG/ML VIAL IVP PRN ×3 (00:09)
[2016-11-18] MEDS: *HR* OxyCODONE Immed Rel 5 MG TABLET PO PRN ×2 (04:08→13:10)
[2016-11-18 05:46] LABS: Basophils # 0.1 K/mcL (0.0-0.2); Basophils % 0.4 %; Eosinophils # 0.3 K/mcL (0.0-0.6); Eosinophils % 2.4 %; Hematocrit 48.9 % (37.5-50.1); Immature Granulocytes % 0.4 % (0-4); Lymphocytes # 1.7 K/mcL (0.6-4.6); Lymphocytes % 12.3 %; Mean Corpuscular HGB Conc 33.1 g/dL (31.6-35.5); Mean Corpuscular Hemoglobin 29.3 pg (28.0-33.3); Mean Corpuscular Volume 88.4 fL (83.0-100.0); Mean Platelet Volume 9.3 fL (9.4-12.4); Monocytes % 7.1 %; Neutrophils # 10.8 K/mcL (1.6-8.9); Platelet Count 241 K/mcL (140-400); Red Blood Count 5.53 M/mcL (4.19-5.50); Red Cell Distribution Width 11.9 % (11.5-14.5); Segmented Neutrophils % 77.4 %
[2016-11-18 05:49] LABS: Hemoglobin 16.2 g/dL (12.9-16.9)
[2016-11-18 05:54] LABS: BUN/Creatinine Ratio 16 (6-26); Blood Urea Nitrogen 10 mg/dL (8-26); Calcium 9.3 mg/dL (8.6-10.8); Carbon Dioxide 24 mEq/L (19-29); Chloride 103 mEq/L (98-109); Glucose 137 mg/dL (70-99); Osmolality,Calculated 287 (280-300); Potassium 3.9 mEq/L (3.5-4.5); Sodium 138 mEq/L (136-145); eGFR For African Americans > 60 (> 60); eGFR For Non-African Americans > 60 (> 60)
[2016-11-18] MEDS: niCARdipine 40 MG/200 ML MLS IVC SCH ×3 (06:03→19:31)
[2016-11-18] MEDS: Ringers Solution, Lactated 1,000 ML IVC SCH ×2 (07:56→07:57)
[2016-11-18] MEDS: Sennosides 8.6 MG TABLET PO PRN (08:55)
[2016-11-18] MEDS: Thiamine (B-1) 100 MG TABLET PO SCH (08:55)
[2016-11-18] MEDS: Vitamin B Complex/Vit C/Vit E 1 EACH TABLET PO SCH (08:55)
[2016-11-18] MEDS: Pantoprazole 40 MG VIAL IVP SCH (08:55)
[2016-11-18] MEDS: Aspirin 325 MG TABLET PO SCH (08:56)
[2016-11-18] MEDS: Folic Acid 1 MG TABLET PO SCH (08:56)
[2016-11-18] MEDS: amLODIPine 5 MG TABLET PO SCH ×2 (08:56→22:42)
[2016-11-18] MEDS: Multivit/Ca/Min/Fe/FA 1 TAB TABLET PO SCH (08:56)
[2016-11-18] MEDS: *HR* Morphine 2 MG/ML SYRINGE IVP PRN (08:56)
--- NOTE | 2016-11-18 09:22 | Internal Med Progress Note ---
<Huber Nichols - Last Filed: 11/18/16 15:32> Date of Encounter: 11/18/16 Time of Encounter: 09:20 - Assessment and plan (1) Cervical stenosis of spinal canal Current Visit: Yes Status: Chronic Assessment and plan: Status post postop day 2 anterior cervical decompression and C5-C7. Plan is to follow up with Dr. Mccormack outpatient. (2) Hypertension Current Visit: Yes Status: Chronic Assessment and plan: Hypertensive emergency last night. Patient started on cardene drip. Currently on 6.5mg/hr. WIll consult surgery for further evaluation and treatment. Qualifiers: Hypertension type: essential hypertension Qualified Code(s): I10 - Essential (primary) hypertension (3) DVT prophylaxis Current Visit: Yes Status: Acute Assessment and plan: Bilateral EPCD's. - Subjective Interval history: Patient is status post postop day 2 anterior cervical decompression and C5-C7 fusion. This morning he reports little pain and denies numbness. Last night patient's blood pressure increased to 202/100. At that time patient reported tunnel vision and new onset of numbness and tingling in bilateral fingers and heavy head. Patient's blood pressure was being treated with amlodipine daily and hydralazine PRN. Patient was given 10 mg hydralazine without any effect on his blood pressure. He was then given 10 mg of metoprolol IV which brought his blood pressure down to 180 systolic. It was then decided to transfer patients to [facility] and start on Cardene drip. Dr. Medina was notified last night about patient's situation and will see him today. Overnight patient started having visual and auditory hallucinations described as floating objects when he closes his eyes and bugs and birds tripping. Initially his blood pressure decreased to 140s systolic and his Cardene drip was decreased from 5 mg to 2 mg an hour. This morning patient's blood pressure increased and Cardene drip was titrated up to 6 mg an hour. He still has auditory hallucinations. Also patient's daughter reported that he had drinks 6 beers every night. While his increase in blood pressure and hallucinations are past 72 hours from admission he was put on a CIWA protocol and has received 2 mg Ativan overnight. - Constitutional Vitals: Temp Pulse Resp BP Pulse Ox 98.1 F 109 16 141/97 94 L 11/18/16 07:17 11/18/16 07:43 11/18/16 07:17 11/18/16 07:43 11/18/16 07:43 General appearance: Present: A&O X 3, pleasant, answers questions appropriately Internal Medicine: Result - Labs CBC & Chem 7: 11/18/16 05:13 11/18/16 05:13 Labs: Short CBC 11/18/16 Range/Units 05:13 WBC 14.0 H (4.3-11.1) K/mcL Hgb 16.2 D (12.9-16.9) g/dL Hct 48.9 (37.5-50.1) % Plt Count 241 (140-400) K/mcL Neutrophils # 10.8 H (1.6-8.9) K/mcL BMP 11/18/16 05:13 Sodium 138 Potassium 3.9 Chloride 103 Carbon Dioxide 24 BUN 10 Creatinine 0.64 L Glucose 137 H Calcium 9.3 - ABG Interpretation ABG results: ABG ABG pH 7.37 pH Units (7.32-7.45) 11/11/16 20:05 ABG pCO2 55 mmHg (35-45) H 11/11/16 20:05 ABG pO2 64 mmHg (85-104) L 11/11/16 20:05 ABG O2 Saturation 91 % (95-98) L 11/11/16 20:05 PT/INR, D-dimer PT 12.4 Seconds (9.4-12.1) H 11/11/16 12:30 - Impressions Impressions Cervical Spine X-Ray 11/17/16 08:30 IMPRESSION: Satisfactory postoperative appearance following anterior cervical fusion from C5 through C7. D/ / Raudel Castrejon MD / Raudel Castrejon MD Interpreting Provider: Raudel Castrejon MD - VTE Documentation of Mechanical Device: Intermittent pneumatic compression device Consult Discharge Plan - Plan Referrals: [facility] [Provider Group] - 11/29/16 1:30 pm Sedrick Medina Jr, MD [Partnered Physician] - 11/29/16 10:20 am Yong Brown MD [Partnered Physician] - (within 7 days of discharge for cervial foraminal stenosis and moderate cervical spinal canal steonsis. ) Satish Nicole DO [Primary Care Provider] - 11/24/16 11:00 am <Freddy Conti P - Last Filed: 11/18/16 18:16> - Constitutional Vitals: Temp Pulse Resp BP Pulse Ox 98.3 F 79 16 158/90 95 11/18/16 16:26 11/18/16 16:26 11/18/16 16:26 11/18/16 16:26 11/18/16 16:26 Internal Medicine: Result - Labs CBC & Chem 7: 11/18/16 05:13 11/18/16 05:13 Labs: Short CBC 11/18/16 Range/Units 05:13 WBC 14.0 H (4.3-11.1) K/mcL Hgb 16.2 D (12.9-16.9) g/dL Hct 48.9 (37.5-50.1) % Plt Count 241 (140-400) K/mcL Neutrophils # 10.8 H (1.6-8.9) K/mcL BMP 11/18/16 05:13 Sodium 138 Potassium 3.9 Chloride 103 Carbon Dioxide 24 BUN 10 Creatinine 0.64 L Glucose 137 H Calcium 9.3 - ABG Interpretation ABG results: ABG ABG pH 7.37 pH Units (7.32-7.45) 11/11/16 20:05 ABG pCO2 55 mmHg (35-45) H 11/11/16 20:05 ABG pO2 64 mmHg (85-104) L 11/11/16 20:05 ABG O2 Saturation 91 % (95-98) L 11/11/16 20:05 PT/INR, D-dimer PT 12.4 Seconds (9.4-12.1) H 11/11/16 12:30 - Attending Attestation I examined this patient and my medical decision-making was reviewed with the NAILER MACHINE/PA/Advanced Practice Nurse/Resident Physician. I agree with the documented findings, disposition and treatment plan as described except to the extent set forth below. His blood pressure is persistently elevated then we will get cardiology opinion tomorrow.
[2016-11-18] MEDS: Acetaminophen 325 MG TABLET PO PRN ×2 (15:45→22:19)
--- NOTE | 2016-11-18 16:36 | Electrocardiograph Report ---
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
[2016-11-18] MEDS: *HR* HYDROcodone/Acet 5/325 mg TABLET PO PRN (17:27)
[2016-11-18] MEDS: Lisinopril 20 MG TABLET PO SCH (22:42)
[2016-11-19] MEDS: Acetaminophen 325 MG TABLET PO PRN ×2 (04:24→20:10)
[2016-11-19 04:46] LABS: Basophils # 0.1 K/mcL (0.0-0.2); Basophils % 0.5 %; Eosinophils # 0.4 K/mcL (0.0-0.6); Eosinophils % 3.4 %; Hematocrit 45.1 % (37.5-50.1); Hemoglobin 15.3 g/dL (12.9-16.9); Immature Granulocytes % 0.5 % (0-4); Lymphocytes # 1.8 K/mcL (0.6-4.6); Lymphocytes % 14.3 %; Mean Corpuscular HGB Conc 33.9 g/dL (31.6-35.5); Mean Corpuscular Hemoglobin 30.2 pg (28.0-33.3); Mean Platelet Volume 9.3 fL (9.4-12.4); Monocytes # 0.8 K/mcL (0.0-1.3); Monocytes % 6.2 %; Neutrophils # 9.5 K/mcL (1.6-8.9); Platelet Count 234 K/mcL (140-400); Red Blood Count 5.07 M/mcL (4.19-5.50); Red Cell Distribution Width 11.9 % (11.5-14.5); Segmented Neutrophils % 75.1 %
[2016-11-19 05:13] LABS: BUN/Creatinine Ratio 17 (6-26); Blood Urea Nitrogen 11 mg/dL (8-26); Calcium 9.2 mg/dL (8.6-10.8); Carbon Dioxide 24 mEq/L (19-29); Chloride 103 mEq/L (98-109); Glucose 114 mg/dL (70-99); Osmolality,Calculated 284 (280-300); Potassium 3.7 mEq/L (3.5-4.5); Sodium 137 mEq/L (136-145); eGFR For African Americans > 60 (> 60); eGFR For Non-African Americans > 60 (> 60)
[2016-11-19] MEDS: *HR* HYDROcodone/Acet 5/325 mg TABLET PO PRN (07:37)
[2016-11-19] MEDS: Sennosides 8.6 MG TABLET PO PRN (09:40)
[2016-11-19] MEDS: Aspirin 325 MG TABLET PO SCH (09:40)
[2016-11-19] MEDS: Vitamin B Complex/Vit C/Vit E 1 EACH TABLET PO SCH (09:41)
[2016-11-19] MEDS: Lisinopril 20 MG TABLET PO SCH (09:41)
[2016-11-19] MEDS: Pantoprazole 40 MG VIAL IVP SCH (09:41)
[2016-11-19] MEDS: Thiamine (B-1) 100 MG TABLET PO SCH (09:41)
[2016-11-19] MEDS: Multivit/Ca/Min/Fe/FA 1 TAB TABLET PO SCH (09:41)
[2016-11-19] MEDS: Folic Acid 1 MG TABLET PO SCH (09:42)
[2016-11-19] MEDS: amLODIPine 5 MG TABLET PO SCH (09:42)
--- NOTE | 2016-11-19 10:13 | Internal Med Progress Note ---
<Huber Nichols - Last Filed: 11/19/16 10:10> Date of Encounter: 11/19/16 Time of Encounter: 10:11 - Assessment and plan (1) Cervical stenosis of spinal canal Current Visit: Yes Status: Chronic Assessment and plan: Status post postop day 2 anterior cervical decompression and C5-C7. Plan is to follow up with Dr. Mccormack outpatient. Denies any sensory deficits. (2) Hypertension Current Visit: Yes Status: Chronic Assessment and plan: Controlled since yesterday nigh. Baltazar BP has been 120-130s systolic. Continue amlodipine, lisinopril. Continue hydralazine PRN. Plan is to observe Mr. Saavedra overnight. Qualifiers: Hypertension type: essential hypertension Qualified Code(s): I10 - Essential (primary) hypertension (3) DVT prophylaxis Current Visit: Yes Status: Acute Assessment and plan: Bilateral EPCD's. Heparin SQ. - Subjective Interval history: blood pressure has been very well controlled overnight. Patients visual and auditory hallucinations have resolved. He denies any problems overnight. - Constitutional Vitals: Temp Pulse Resp BP Pulse Ox 97.8 F 87 18 125/83 97 11/19/16 07:12 11/19/16 09:33 11/19/16 07:12 11/19/16 07:12 11/19/16 09:33 General appearance: Present: A&O X 3, pleasant, answers questions appropriately - Eye Eye exam: Present: PERRL, conjuntiva pink, sclera anicteric - Neck Neck exam general surgery: Present: normal inspection, supple. Absent: lymphadenopathy - Respiratory Respiratory exam: Present: CTAB. Absent: accessory muscle use, rales, rhonchi, wheezes - Cardiovascular Cardiovascular exam: Present: RRR, +S1, +S2. Absent: diastolic murmur, gallop, rubs, systolic murmur - GI/Abdominal GI/Abdominal exam: Present: normal bowel sounds, soft, no peritoneal signs. Absent: distended, tenderness - Extremities Exam Extremities exam: Present: warm, radial pulses palpable and symetrical. Absent : calf tenderness, cyanotic, pedal edema - Incison Incision: Present: clean and dry, intact. Absent: erythema - Neurological Exam Neurological exam: Present: CN II-XII intact, oriented X3, no focal deficits. Absent: motor sensory deficit, pronater drift, facial droop, speech deficit Internal Medicine: Result - Labs CBC & Chem 7: 11/19/16 03:13 11/19/16 03:13 Labs: Short CBC 11/19/16 Range/Units 03:13 WBC 12.7 H (4.3-11.1) K/mcL Hgb 15.3 (12.9-16.9) g/dL Hct 45.1 (37.5-50.1) % Plt Count 234 (140-400) K/mcL Neutrophils # 9.5 H (1.6-8.9) K/mcL BMP 11/19/16 03:13 Sodium 137 Potassium 3.7 Chloride 103 Carbon Dioxide 24 BUN 11 Creatinine 0.65 L Glucose 114 H Calcium 9.2 - ABG Interpretation ABG results: ABG ABG pH 7.37 pH Units (7.32-7.45) 11/11/16 20:05 ABG pCO2 55 mmHg (35-45) H 11/11/16 20:05 ABG pO2 64 mmHg (85-104) L 11/11/16 20:05 ABG O2 Saturation 91 % (95-98) L 11/11/16 20:05 PT/INR, D-dimer PT 12.4 Seconds (9.4-12.1) H 11/11/16 12:30 - Impressions Impressions Abdomen/Pelvis CT 11/18/16 18:40 IMPRESSION: No acute abnormality in the chest. Gas within the urinary bladder. Correlate for recent catheterization. Otherwise, no evidence of acute abnormality in the abdomen or pelvis. Diverticulosis without evidence of diverticulitis. Nonobstructing calculus within the left upper pole. D/ / Real Carmona MD / Real Carmona MD Interpreting Provider: Real Carmona MD Chest CT 11/18/16 18:40 IMPRESSION: No acute abnormality in the chest. Gas within the urinary bladder. Correlate for recent catheterization. Otherwise, no evidence of acute abnormality in the abdomen or pelvis. Diverticulosis without evidence of diverticulitis. Nonobstructing calculus within the left upper pole. D/ / Real Carmona MD / Real Carmona MD Interpreting Provider: Real Carmona MD - VTE Documentation of Mechanical Device: Intermittent pneumatic compression device Consult Discharge Plan - Plan Referrals: [facility] [Provider Group] - 11/29/16 1:30 pm Sedrick Medina Jr, MD [Partnered Physician] - 11/29/16 10:20 am Yong Brown MD [Partnered Physician] - (within 7 days of discharge for cervial foraminal stenosis and moderate cervical spinal canal steonsis. ) Satish Nicole DO [Primary Care Provider] - 11/24/16 11:00 am <Freddy Conti P - Last Filed: 11/19/16 17:51> - Constitutional Vitals: Temp Pulse Resp BP Pulse Ox 97.8 F 83 17 138/72 92 L 11/19/16 15:52 11/19/16 15:52 11/19/16 15:52 11/19/16 15:52 11/19/16 15:52 Internal Medicine: Result - Labs CBC & Chem 7: 11/19/16 03:13 11/19/16 03:13 Labs: Short CBC 11/19/16 Range/Units 03:13 WBC 12.7 H (4.3-11.1) K/mcL Hgb 15.3 (12.9-16.9) g/dL Hct 45.1 (37.5-50.1) % Plt Count 234 (140-400) K/mcL Neutrophils # 9.5 H (1.6-8.9) K/mcL BMP 11/19/16 03:13 Sodium 137 Potassium 3.7 Chloride 103 Carbon Dioxide 24 BUN 11 Creatinine 0.65 L Glucose 114 H Calcium 9.2 - ABG Interpretation ABG results: ABG ABG pH 7.37 pH Units (7.32-7.45) 11/11/16 20:05 ABG pCO2 55 mmHg (35-45) H 11/11/16 20:05 ABG pO2 64 mmHg (85-104) L 11/11/16 20:05 ABG O2 Saturation 91 % (95-98) L 11/11/16 20:05 PT/INR, D-dimer PT 12.4 Seconds (9.4-12.1) H 11/11/16 12:30 - Impressions Impressions Abdomen/Pelvis CT 11/18/16 18:40 IMPRESSION: No acute abnormality in the chest. Gas within the urinary bladder. Correlate for recent catheterization. Otherwise, no evidence of acute abnormality in the abdomen or pelvis. Diverticulosis without evidence of diverticulitis. Nonobstructing calculus within the left upper pole. D/ / Real Carmona MD / Real Carmona MD Interpreting Provider: Real Carmona MD Chest CT 11/18/16 18:40 IMPRESSION: No acute abnormality in the chest. Gas within the urinary bladder. Correlate for recent catheterization. Otherwise, no evidence of acute abnormality in the abdomen or pelvis. Diverticulosis without evidence of diverticulitis. Nonobstructing calculus within the left upper pole. D/ / Real Carmona MD / Real Carmona MD Interpreting Provider: Real Carmona MD - Attending Attestation I examined this patient and my medical decision-making was reviewed with the PARKING ENFORCEMENT TECHNICIAN/PA/Advanced Practice Nurse/Resident Physician. I agree with the documented findings, disposition and treatment plan as described except to the extent set forth below.
[2016-11-19] MEDS: *HR* Heparin 5,000 UNIT/ML VIAL SQ SCH (17:12)
[2016-11-19] MEDS ORDERED: Melatonin 3 MG TABLET PO SCH (20:30)
[2016-11-20] MEDS: *HR* Heparin 5,000 UNIT/ML VIAL SQ SCH ×2 (05:19→17:32)
[2016-11-20] MEDS: Vitamin B Complex/Vit C/Vit E 1 EACH TABLET PO SCH (09:45)
[2016-11-20] MEDS: Thiamine (B-1) 100 MG TABLET PO SCH (09:45)
[2016-11-20] MEDS: amLODIPine 5 MG TABLET PO SCH (09:45)
[2016-11-20] MEDS: Lisinopril 20 MG TABLET PO SCH (09:45)
[2016-11-20] MEDS: Aspirin 325 MG TABLET PO SCH (09:45)
[2016-11-20] MEDS: Multivit/Ca/Min/Fe/FA 1 TAB TABLET PO SCH (09:45)
[2016-11-20] MEDS: Folic Acid 1 MG TABLET PO SCH (09:45)
--- NOTE | 2016-11-20 12:37 | Internal Med Progress Note ---
<Huber Nichols - Last Filed: 11/20/16 13:07> Date of Encounter: 11/20/16 Time of Encounter: 12:36 - Assessment and plan (1) Cervical stenosis of spinal canal Current Visit: Yes Status: Chronic Assessment and plan: Status post postop day 3 anterior cervical decompression and C5-C7. Patient represented with severe left-sided chest pain and numbness and tingling in the second and third digit of the left hand. CT neck showed severe cervical canal stenosis. MRI confirmed the findings with moderate central stenosis at C5-6 and C6-7 and severe foraminal stenosis on the left at C5-6 and C6-7. Patient underwent anterior cervical decompression by Dr. Medina. Surgery was uneventful. Postsurgical patient's pain has been under control and his numbness and tingling have improved. Occupational therapy does not seem any hindrance to patient being discharged. We still need a physical therapy consultation. Plan is to follow up with Dr. Mccormack outpatient. Denies any sensory deficits. (2) Hypertension Current Visit: Yes Status: Chronic Assessment and plan: Status post surgery patient had elevated blood pressure. He is put on hydralazine when necessary and amlodipine. However these medications did not adequately control his blood pressure. On November 17 patient is blood pressure was severely elevated at 200/100. He was started on a nicardipine drip. Patient was on the Micardis finger overnight. His blood pressure slowly became under control and he was transitioned to amlodipine and lisinopril. Currently the patient's blood pressures under control with this regimen. We will continue this. Qualifiers: Hypertension type: essential hypertension Qualified Code(s): I10 - Essential (primary) hypertension (3) DVT prophylaxis Current Visit: Yes Status: Acute Assessment and plan: Bilateral EPCD's. Heparin SQ. - Subjective Interval history: Patient denies having further hallucinations. His blood pressure has been stable overnight. He will need a physical therapy and occupational therapy consultation before discharge. - Constitutional Vitals: Temp Pulse Resp BP Pulse Ox 98.4 F 70 16 135/93 98 11/20/16 11:14 11/20/16 11:14 11/20/16 11:14 11/20/16 11:14 11/20/16 11:14 General appearance: Present: A&O X 3, pleasant, answers questions appropriately - Neck Neck exam general surgery: Present: supple, trachea midline. Absent: lymphadenopathy - Respiratory Respiratory exam: Present: CTAB. Absent: accessory muscle use, rales, rhonchi, wheezes - Cardiovascular Cardiovascular exam: Present: RRR, +S1, +S2. Absent: diastolic murmur, gallop, rubs, systolic murmur - GI/Abdominal GI/Abdominal exam: Present: normal bowel sounds, soft, no peritoneal signs. Absent: distended, tenderness - Extremities Exam Extremities exam: Present: warm, radial pulses palpable and symetrical. Absent : calf tenderness, cyanotic, pedal edema Internal Medicine: Result - Labs CBC & Chem 7: 11/19/16 03:13 11/19/16 03:13 - ABG Interpretation ABG results: ABG ABG pH 7.37 pH Units (7.32-7.45) 11/11/16 20:05 ABG pCO2 55 mmHg (35-45) H 11/11/16 20:05 ABG pO2 64 mmHg (85-104) L 11/11/16 20:05 ABG O2 Saturation 91 % (95-98) L 11/11/16 20:05 PT/INR, D-dimer PT 12.4 Seconds (9.4-12.1) H 11/11/16 12:30 - VTE Documentation of Mechanical Device: Intermittent pneumatic compression device Consult Discharge Plan - Plan Referrals: [facility] [Provider Group] - 11/29/16 1:30 pm Sedrick Medina Jr, MD [Partnered Physician] - 11/29/16 10:20 am Yong Brown MD [Partnered Physician] - (within 7 days of discharge for cervial foraminal stenosis and moderate cervical spinal canal steonsis. ) Satish Nicole DO [Primary Care Provider] - 11/24/16 11:00 am <Freddy Conti P - Last Filed: 11/20/16 18:25> - Constitutional Vitals: Temp Pulse Resp BP Pulse Ox 98.4 F 78 16 134/85 95 11/20/16 15:12 11/20/16 15:12 11/20/16 15:12 11/20/16 15:12 11/20/16 15:12 Internal Medicine: Result - Labs CBC & Chem 7: 11/19/16 03:13 11/19/16 03:13 - ABG Interpretation ABG results: ABG ABG pH 7.37 pH Units (7.32-7.45) 11/11/16 20:05 ABG pCO2 55 mmHg (35-45) H 11/11/16 20:05 ABG pO2 64 mmHg (85-104) L 11/11/16 20:05 ABG O2 Saturation 91 % (95-98) L 11/11/16 20:05 PT/INR, D-dimer PT 12.4 Seconds (9.4-12.1) H 11/11/16 12:30 - Attending Attestation I examined this patient and my medical decision-making was reviewed with the FINANCE BUSINESS PARTNER/PA/Advanced Practice Nurse/Resident Physician. I agree with the documented findings, disposition and treatment plan as described except to the extent set forth below.
[2016-11-20] MEDS ORDERED: Melatonin 3 MG TABLET PO PRN (21:25)
[2016-11-21] MEDS: *HR* OxyCODONE Immed Rel 5 MG TABLET PO PRN (04:17)
[2016-11-21 05:15] LABS: Hemoglobin 14.7 g/dL (12.9-16.9); Mean Corpuscular HGB Conc 33.4 g/dL (31.6-35.5); Mean Corpuscular Hemoglobin 29.5 pg (28.0-33.3); Mean Corpuscular Volume 88.4 fL (83.0-100.0); Mean Platelet Volume 8.9 fL (9.4-12.4); Red Blood Count 4.98 M/mcL (4.19-5.50); Red Cell Distribution Width 11.9 % (11.5-14.5)
[2016-11-21 05:30] LABS: BUN/Creatinine Ratio 18 (6-26); Blood Urea Nitrogen 12 mg/dL (8-26); Calcium 9.1 mg/dL (8.6-10.8); Carbon Dioxide 22 mEq/L (19-29); Chloride 106 mEq/L (98-109); Glucose 115 mg/dL (70-99); Osmolality,Calculated 283 (280-300); Potassium 3.8 mEq/L (3.5-4.5); Sodium 136 mEq/L (136-145); eGFR For African Americans > 60 (> 60); eGFR For Non-African Americans > 60 (> 60)
[2016-11-21] MEDS: *HR* Heparin 5,000 UNIT/ML VIAL SQ SCH (05:37)
[2016-11-21 07:41] VITALS: BP 143/80
[2016-11-21] MEDS: amLODIPine 5 MG TABLET PO SCH (08:13)
[2016-11-21] MEDS: Multivit/Ca/Min/Fe/FA 1 TAB TABLET PO SCH (08:13)
[2016-11-21] MEDS: Thiamine (B-1) 100 MG TABLET PO SCH (08:14)
[2016-11-21] MEDS: Vitamin B Complex/Vit C/Vit E 1 EACH TABLET PO SCH (08:14)
[2016-11-21] MEDS: Lisinopril 20 MG TABLET PO SCH (08:14)
[2016-11-21] MEDS: Aspirin 325 MG TABLET PO SCH (08:14)
[2016-11-21] MEDS: Folic Acid 1 MG TABLET PO SCH (08:14)
--- NOTE | 2016-11-21 09:44 | Discharge Summary ---
<Claudio Maloney - Last Filed: 11/21/16 14:37> Date of Encounter: 11/21/16 Time of Encounter: 09:20 - Discharge Diagnosis (1) Cervical stenosis of spinal canal Priority: Primary Status: Chronic (2) Hypertension Priority: Primary Status: Chronic Qualifiers: Hypertension type: essential hypertension Qualified Code(s): I10 - Essential (primary) hypertension (3) DVT prophylaxis Priority: Secondary Status: Acute - Discharge Medications Home Medications: Amlodipine [Norvasc] 5 mg PO DAILY 11/11/16 [History] Aspirin 325 mg PO DAILY 11/11/16 [History] Ferrous Sulfate 325 mg PO DAILY 11/11/16 [History] Losartan/Hydrochlorothiazide [Losartan-Hctz 100-25 mg Tab] 1 tab PO DAILY [History] Multivitamin [Multi-Day Vitamins] 1 each PO DAILY 11/11/16 [History] Tramadol HCl 50 mg PO Q6H PRN 11/11/16 [History] Albuterol Sulfate [Albuterol Inhaler] 2 puff IH Q6HR PRN #1 inh 11/12/16 [Rx] HYDROcodone/Acet 5/325 mg [[place] 5-325 mg] 1 tab PO Q6HR PRN #20 tablet [Rx] Omeprazole [PriLOSEC] 20 mg PO DAILY@0630 #60 capsule.dr 11/12/16 [Rx] Tiotropium [Spiriva] 18 mcg IH DAILYR #30 inh 11/12/16 [Rx] Allergies/Adverse Reactions: Allergies No Known Allergies Allergy (Verified 11/11/16 12:17) Procedures/tests Complete & Pending: Procedures Performed prior 72 hours Category Date Time Status CT abd pelvis w iv and oral [CT] Routine Cat Scan 11/18/16 18:[address] chest w con [CT] Routine Cat Scan 11/18/16 18:40 Completed Date of admission: 11/15/16 18:54 Primary care physician: Satish Nicole Consults: 11/16/16 16:43 Consult to Occupational Therapy [CONS] Routine Comment: Evaluate, develop and implement POC Consult to Physical Therapy [CONS] Routine Comment: Evaluate, develop and implement POC Consult to Spine Navigator [CONS] [CONS] Routine 11/17/16 16:43 Consult to Manager Consumer Insights [CONS] Routine Reason for SW Consult: patient stated that he needs to figure out his billing with workers comp. thanks so much Discharging clinician: Claudio Maloney Anticipated date of discharge: 11/21/16 - Patient Status Disposition: Home Health Service Condition: Good Functional capacity at discharge: independent ambulation Overall status at discharge: patient is progressing back to baseline - Discharge Instructions Instructions: Lisinopril (By mouth), Chronic Obstructive Pulmonary Disease (DC) Follow Up With: [facility] [Provider Group] - 11/29/16 1:30 pm Sedrick Medina Jr, MD [Partnered Physician] - 11/29/16 10:20 am Yong Brown MD [Partnered Physician] - 12/06/16 11:15 am () Satish Nicole DO [Primary Care Provider] - 11/24/16 11:00 am Additional Instructions: Take home medications as prescribed: Lisinopril 20 mg Follow-up with her PCP as scheduled Follow-up with neurology Follow-up with Dr. Medina, neurosurgery, as scheduled Return to emergency room if worsening symptoms, development of difficulty breathing, or feeling of development of mass in area of surgery - Diet and Activity Activity: as per physical therapy, increase activity as tolerated Diet: advance to your usual diet Interval History: Patient reports doing well overall this morning. He denies any shortness of breath, pain, lightheadedness or dizziness, chest pain, abdominal pain, nausea or vomiting, or weakness. Hospital course: Mr. Saavedra is a 61 year old male who presented to [facility] with chief concern: Chest pain Comorbidities would include: GERD, hyperlipidemia, hypertension @ Hospital course: Mr. Baird presented to [facility] on 11/11/16 with concerns of chest pain with pain radiating into his left shoulder as well as numbness in the second and third fingers of his left hand. He had been having the chest pain for 2 months prior to presentation, but had not been severe. He was seen by cardiology and determined to have a noncardiac etiology to his chest pain, with recent negative workup, negative enzymes, and EKG not concerning for recurrent ischemia. MRI was obtained due to his continued neurological symptoms in his left arm which was concerning for paracentral disc extrusion, moderate central spinal canal narrowing, spinal canal stenosis, foraminal narrowing. Spine surgery was consulted and he underwent anterior cervical decompression and fusion of C5-C7. He was ready for discharge, but suffered an episode of hypertension and syncope. Was at this point there was disclosed that the patient has a extensive drinking history had not been on CIWA protocol prior. After being stabilized with Ativan, and monitored for several days following his syncopal event, patient has remained stable and is safe for discharge with follow-up with his PCP, spine surgeon, and neurologist. At time of discharge, patient was clinically improved, hemodynamically stable, progressing to baseline, and agreeable with plan of care. Patient was advised to seek immediate medical attention for any new or worsening symptoms including but not limited to fever, chills, chest pain, chest pressure, dyspnea, cough, abdominal pain, nausea, vomiting, diarrhea, bloody stool, urine and the patient voiced understanding. Patient will follow-up with primary care physician: - Time Spent with Patient Total time spent providing and/or coordinating discharge services: - Constitutional Vitals: Temp Pulse Resp BP Pulse Ox 97.8 F 82 15 143/80 97 11/21/16 07:38 11/21/16 07:38 11/21/16 07:38 11/21/16 07:38 11/21/16 07:38 General appearance: Present: A&O X 3, pleasant, answers questions appropriately Exam: General: Cooperative, pleasant, no acute distress, alert and oriented 3, answers questions appropriately Head: Normocephalic, atraumatic Eye: Conjunctiva pink, sclera anicteric, EOMI, PERRL Neck: Supple, trachea midline, bandage in place over surgical site from recent discectomy, no inflammation observed, clean, intact Respiratory: No accessory muscle usage, clear to auscultation bilaterally, no wheezes/rhonchi/rales appreciated Cardiovascular: Regular rate and rhythm, S1 and S2 present, no murmurs/rubs/ gallops/clicks appreciated GI/abdominal: Nondistended, nontender, soft, normal bowel sounds, no peritoneal signs Extremities: No calf tenderness, noncyanotic, no pedal edema appreciated, warm, lower extremity pulses palpable and symmetrical, left elbow tender to palpation and movement, slightly warm Neurological: Alert and oriented 3, no facial droop,deficits, no focal deficits Skin: Dry, intact, normal color - VTE Documentation of Mechanical Device: Intermittent pneumatic compression device <Freddy Conti P - Last Filed: 11/21/16 18:25> Procedures/tests Complete & Pending: Procedures Performed prior 72 hours Category Date Time Status CT abd pelvis w iv and oral [CT] Routine Cat Scan 11/18/16 18:[address] chest w con [CT] Routine Cat Scan 11/18/16 18:40 Completed Date of admission: 11/15/16 18:54 Primary care physician: Satish Nicole Consults: 11/16/16 16:43 Consult to Occupational Therapy [CONS] Routine Comment: Evaluate, develop and implement POC Consult to Physical Therapy [CONS] Routine Comment: Evaluate, develop and implement POC Consult to Spine Navigator [CONS] [CONS] Routine 11/17/16 16:43 Consult to Manager Consumer Insights [CONS] Routine Reason for SW Consult: patient stated that he needs to figure out his billing with workers comp. thanks so much Hospital course: Mr. Saavedra is a 61 year old male - Time Spent with Patient Total time spent providing and/or coordinating discharge services: - Constitutional Vitals: Temp Pulse Resp BP Pulse Ox 97.8 F 82 15 143/80 97 11/21/16 07:38 11/21/16 07:38 11/21/16 07:38 11/21/16 07:38 11/21/16 07:38 - Attending Attestation I examined this patient and my medical decision-making was reviewed with the REGISTERED DIETITIAN/PA/Advanced Practice Nurse/Resident Physician. I agree with the documented findings, disposition and treatment plan as described except to the extent set forth below.
[2016-11-21] MEDS ORDERED: Ibuprofen 800 MG TABLET PO ONE (09:45)
--- NOTE | 2016-11-21 10:00 | Physician Discharge Referral ---
<AmaraClaudio - Last Filed: 11/21/16 09:58> Home Health/Hosp Referral Info Transfer to: Home Health Provider in Charge Post Discharge: PCP - Diagnosis (1) Cervical stenosis of spinal canal Priority: Primary Status: Chronic (2) Hypertension Priority: Primary Status: Chronic (3) DVT prophylaxis Priority: Secondary Status: Acute - Respiratory Orders Smoking Cessation: Smoking cessation has been advised. For more information, call the [place] Tobacco Quit Line at 6-547-AIMV-NOW. - Diet/Nutrition Diet/Nutrition Orders: No Added Salt (SAMARA) - Activity Activity Orders: Ambulate - Services Needed Following services are medically necessary services: Physical Therapy - Transfer Medications Home Medications: Amlodipine [Norvasc] 5 mg PO DAILY 11/11/16 [History] Aspirin 325 mg PO DAILY 11/11/16 [History] Ferrous Sulfate 325 mg PO DAILY 11/11/16 [History] Losartan/Hydrochlorothiazide [Losartan-Hctz 100-25 mg Tab] 1 tab PO DAILY [History] Multivitamin [Multi-Day Vitamins] 1 each PO DAILY 11/11/16 [History] Tramadol HCl 50 mg PO Q6H PRN 11/11/16 [History] Albuterol Sulfate [Albuterol Inhaler] 2 puff IH Q6HR PRN #1 inh 11/12/16 [Rx] HYDROcodone/Acet 5/325 mg [[place] 5-325 mg] 1 tab PO Q6HR PRN #20 tablet [Rx] Omeprazole [PriLOSEC] 20 mg PO DAILY@0630 #60 capsule. 11/12/16 [Rx] Tiotropium [Spiriva] 18 mcg IH DAILYR #30 inh 11/12/16 [Rx] Allergies/Adverse Reactions: Allergies No Known Allergies Allergy (Verified 11/11/16 12:17) Certification: Further, I certify that my clinical findings support that this patient is homebound (i.e. absences from home require considerable and taxing effort and are for medical reasons or uatsdin services or infrequently or short duration when for other reasons) because: Homebound Reason: Post-surgery restriction and or conditions limit ability to leave home Attestation: My signature below is to certify that this patient is under my care and that I, or nurse practitioner, or a physician's gift shop assistant working with me, has a face-to -face encounter with this patient. <Freddy Conti P - Last Filed: 11/21/16 18:25> - Respiratory Orders Smoking Cessation: Smoking cessation has been advised. For more information, call the [place] Tobacco Quit Line at 3-458-MGGN-NOW. Certification: Further, I certify that my clinical findings support that this patient is homebound (i.e. absences from home require considerable and taxing effort and are for medical reasons or uatsdin services or infrequently or short duration when for other reasons) because: Attestation: My signature below is to certify that this patient is under my care and that I, or nurse practitioner, or a physician's gift shop assistant working with me, has a face-to -face encounter with this patient.
== END 2016-11-21 13:10 | disposition home health service (06) | DRG 472 ==
LOC: EMEROO 11:40 → 3BNU 11:40 → SUATTDRO 16:33 → 2NENU 16:57 → SUATTDRO 11-15 18:54 → 3NENU 11-16 10:43 → 2NNU 11-17 22:09 → 2NENU 11-19 10:52
PROVIDERS: ADMIT Internal Medicine; ATTEND Internal Medicine